=== PATIENT | female | born 1955 | race Asian ===

== ENCOUNTER 2019-05-29 16:06 | Outpatient (CLI) | payer OTHER, SELFPAY ==
--- NOTE | ~2019-05-29 | XR_ITS ---
EXAMINATION: XR chest 2V EXAM DATE: 05/29/2019 16:49 INDICATION: Cough for 6 weeks. TECHNIQUE: Frontal and lateral projections of the chest obtained and reviewed. There is no prior aly dy for comparison. FINDINGS: The lungs are clear. There are no pleural effusions. The cardiomediastinal silhouette is within normal limits. There is no pneumothorax suspected. The bones and soft tissues are unremarkab le. IMPRESSION: Unremarkable chest x-ray exam. Reviewed, dictated and finalized at location A. [employer]
[2019-05-29 16:31] LABS: Basophils Absolute Auto 0.1 K/mm3 (0.0-0.1); Basophils Percent Auto 0.9 % (0.2-1.2); Eosinophils Absolute Auto 0.1 K/mm3 (0-0.3); Eosinophils Percent Auto 1.1 % (0-4.4); Hematocrit 40.6 % (37.0-47.0); Hemoglobin 13.1 g/dL (12.0-15.0); Immature Granulocyte Absolute 0.02 K/mm3 (0.00-0.031); Immature Granulocyte Percent A 0.4 % (0-0.5); Lymphocytes Absolute Auto 1.97 K/mm3 (0.9-3.2); Lymphocytes Percent Auto 34.9 % (18.3-44.2); Mean Corpuscular HGB Conc 32.3 g/dl (32-36); Mean Corpuscular Hemoglobin 29.8 pg (26-34); Mean Corpuscular Volume 92.5 fl (80-100); Mean Platelet Volume 10.3 fl (7.4-10.4); Monocytes Absolute Auto 0.4 K/mm3 (0.1-0.6); Monocytes Percent Auto 6.4 % (2.6-8.5); Neutrophils Absolute Auto 3.2 K/mm3 (1.3-6.7); Neutrophils Percent Auto 56.3 % (45.5-73.1); Platelet Count Result 303 k/mm3 (150-375); Red Blood Count 4.39 M/mm3 (4.2-5.4); Red Cell Distribution Width 11.9 % (11.5-14.5); White Blood Count 5.7 K/mm3 (4.5-10.0)
[2019-05-29 16:43] LABS: Alanine Aminotransferase 31 U/L (4-35); Albumin Level 4.4 g/dL (3.5-5.1); Alkaline Phosphatase 79 U/L (38-126); Aspartate Amino Transferase 27 U/L (14-36); Bilirubin,Total 0.1 mg/dL (0.2-1.3); Blood Urea Nitrogen 18 mg/dL (7-17); Calcium 9.3 mg/dL (8.4-10.2); Carbon Dioxide 31 mmol/L (22-30); Chloride 97 mmol/L (98-107); Estimated Glomerular Filt Rate > 60; Glucose 95 mg/dL (65-105); Sodium 140 mmol/L (137-145)
[2019-05-31 20:30] LABS: EBV Nuclear Ab Antibody >600.00 U/mL (<18.00); EBV Nuclear Ab Interpretation Past; EBV Virus Capsid Ag IgM Ab <36.00 U/mL (<36.00)
== END 2019-05-29 16:07 | disposition home or self-care (01) ==
PROVIDERS: PCP Family Medicine; Visit Provider Physician Assistant
DX: B34.9 Viral infection, unspecified (principal); R05 Cough; R53.83 Other fatigue
CPT/HCPCS: 36415; 71046; 80053; 85025; 86664; 86665

== ENCOUNTER 2019-10-09 00:03 | Outpatient (CLI) | payer OTHER, SELFPAY ==
[2019-10-09 18:54] LABS: SARS-CoV-2 RNA PCR Negative
== END 2019-10-09 00:04 | disposition home or self-care (01) ==
LOC: ANHCOVIDDT 00:04
PROVIDERS: PCP Family Medicine; Visit Provider Internal Medicine Gastroenterology
DX: Z01.818 Encounter for other preprocedural examination (principal); Z11.59 Encounter for screening for other viral diseases
CPT/HCPCS: 87635; C9803; U0003

== ENCOUNTER 2019-10-11 01:19 | Day surgery (SDC) | payer OTHER, SELFPAY ==
[2019-10-05 08:15] VITALS: BMI 22.6
[2019-10-11 10:16] VITALS: BP 149/93; PULSE 88; RESP 16; TEMP 36.6; O2SAT 100
[2019-10-11] MEDS: LACTATED RINGERS 1,000 ML 150 ML IV CONT (10:19)
--- NOTE | 2019-10-11 10:49 | PM.IMHP ---
H&P: HPI History of Present Illness Chief complaint: Colon CA screening Narrative: Reason for visit colonoscopy. This very pleasant lady seen in consultation at the request of Dr. Albarran. Impression: Screening colonoscopy. Previous colonoscopy revealed a poor preparation.She does have a family history of colon cancer. IBS. GERD controlled with dietary restrictions. Per past medical history. Recommendation: Colonoscopy. History: This very pleasant lady's here for colonoscopy. Previous colonoscopy revealed poor preparation. She is here for colonoscopy for screening purposes. She does have a history of alternating constipation and diarrhea compatible with IBS. She has a history of GERD well controlled with dietary modification. Physical examination: General: very pleasant patient in no acute distress. HEENT: Head was normocephalic sclerae is clear mouth without masses neck was supple. Heart: Rate rhythm regular without S3 or S4. Lungs: CTA. Abdomen: Soft with no guarding or rigidity. Bowel sounds were active. Neurologic: Cranial nerves 2 through 12 intact. No focal defects. No clonus. Musculoskeletal system: Revealed no joint tenderness or swelling no muscle atrophy. Extremities: Reveal no significant edema. Skin: Warm and dry with normal turgor. Mental status: intact. Patient is alert and oriented. Review of Systems Review of Systems: All systems reviewed & are unremarkable except as noted in HPI and below PMFSH Past Medical History Medical History Gastroesophageal reflux disease Mitral valve prolapse Prediabetes Family History Family History Grandparent Diabetes mellitus Carcinoma of colon Father Hypertension Family history of cardiovascular disease Family history of coronary artery disease Family history of atrial fibrillation Mother Hypertension Cerebrovascular accident Family history of Alzheimer's disease Family history of malignant neoplasm of bone Family history of dementia Family history of malignant neoplasm of breast in first degree relative Sibling Family history of malignant neoplasm Other Family history of allergic disorder Family history of lymphoma Social History Social History Smoking status: Never smoker Alcohol intake: current Meds Home Medications and Allergies Home Medications Medication Instructions Recorded Confirmed Type imipramine HCl 50 mg tablet 50 mg PO DAILY tablet 03/16/19 10/11/19 History riboflavin (vitamin B2) 100 mg 200 mg PO DAILY tablet 03/16/19 10/11/19 History tablet estradiol 1 gm VAGINAL WEEKLY 08/02/19 10/05/19 History imipramine HCl 10 mg tablet 20 mg PO DAILY 90 Days #180 tablet 08/29/19 10/11/19 Rx acidophilus-pectin, citrus 1 cap PO DAILY 10/05/19 10/05/19 History [Acidophilus Probiotic] magnesium 400 mg PO DAILY 10/05/19 10/05/19 History Allergies Allergy/AdvReac Type Severity Reaction Status Date / Time lactose Allergy Unknown Nausea Verified 10/11/19 10:13 naproxen Allergy Unknown Nausea Verified 10/11/19 10:13 ondansetron Allergy Unknown vivid Verified 10/11/19 10:13 nightmares prochlorperazine Allergy Unknown feels Verified 10/11/19 10:13 restless butorphanol AdvReac Intermediate vivd dreams Verified 10/11/19 10:13 Vital Signs Vital Signs - 24 hr 10/11/19 10:16 Temperature 36.6 C Pulse Rate 88 Respiratory Rate 16 Blood Pressure 149/93 H Pulse Oximetry 100
[2019-10-11 11:33] VITALS: BP 99/66; PULSE 60; RESP 22; O2SAT 99
[2019-10-11 11:43] VITALS: BP 108/74; PULSE 62; RESP 17; O2SAT 100
[2019-10-11 11:53] VITALS: BP 122/81; PULSE 63; RESP 17; O2SAT 100
== END 2019-10-11 12:25 | disposition home or self-care (01) ==
PROVIDERS: PCP Family Medicine; Visit Provider Internal Medicine Gastroenterology
PROC: 0DJD8ZZ Inspection of Lower Intestinal Tract, Via Natural or Artificial Opening Endoscopic (ICD-10-PCS; CPT 45378; principal; 2019-10-11 11:30)
DX: Z12.11 Encounter for screening for malignant neoplasm of colon (principal); K64.8 Other hemorrhoids; Z80.0 Family history of malignant neoplasm of digestive organs; K58.9 Irritable bowel syndrome, unspecified; K21.9 Gastro-esophageal reflux disease without esophagitis; I34.1 Nonrheumatic mitral (valve) prolapse; R73.03 Prediabetes
CPT/HCPCS: 45378; C9803; J2704; J7120; U0003

== ENCOUNTER → 2020-10-04 10:03 | Outpatient (CLI) | payer OTHER, SELFPAY ==
--- NOTE | ~2020-10-04 | MM_ITS ---
EXAMINATION: MM screening price BI w chasity HISTORY: Screening mammogram TECHNIQUE: Craniocaudal and mediolateral oblique 3-D tomosynthesis images were obtained and synthetic 2-D images were generated. CAD analysis was submitted and interpreted. COMPARISON: 04/21/2018, 12/24/2014, 11/27/2013 bilateral digital screening mammogram examinations BREAST PARENCHYMAL COMPOSITION: There are scattered areas of fibroglandular density. FINDINGS: There is no evidence of suspicious mass, calcification, or architectural distortion to sugg est malignancy in either breast. There has been no suspicious interval change. IMPRESSION: 1. No mammographic evidence of malignancy. 2. Recommend routine screening mammography in one year. BI-RADS Category 1: Negative Reviewed, dictated and finalized at location A.
--- NOTE | ~2020-10-04 | DEXA_ITS ---
Bone Density Report Name: Shaneka Victoria Age: 65 Sex: Female Ethnicity: White Date of : 1955 Indication: postmenopausal; screening for osteoporosis; Referring Provider: REY TELLEZ Study: Bone densitometry was performed. Exam Date: October 04, 2020 Accession number: [id number] Bone Density: Region BMD T-score Z-score Classification AP Spine (L1-L4) 0.955 -0.8 0.8 Normal World Health Organization criteria for BMD impression classify patients as: Normal (T-score at or above -1.0), Osteopenia (T-score between -1.0 and -2.5), or Osteoporosis (T-score at or below -2.5). Previous Exams: Region Exam Age BMD T-score BMD Change BMD Change Date g/cm2 vs Baseline vs Previous AP Spine(L1-L4) 10/04/2020 65 0.955 -0.8 -0.037* -0.037* 04/21/2018 63 0.993 -0.5 *Denotes significance at 95% confidence level, LSC for AP Spine = 0.022 g/cm2 Clinical Information Provided by Patient: Has used the following medications: Calcium, vit D included in calcium Patient maximum height was 63.5 Menopause Age: 54 Does not regularly consume dairy products Drinks caffeinated beverages Onset of menses at age 13 Number of children 1 Missed period for more than 6 months in a row Impression: The patient has normal bone mass. The BMD for the AP Spine(L1-L4) decreased, changing by -0.037 since the last DXA exam. Discussion: BONE DENSITY IS ABOVE THE MINIMUM DESIRABLE LEVEL AT ALL SKELETAL SITES TESTED. This patient?s bone mineral density is above the minimum desirable level (T-score -1.0 or better) at all sites measured. The patient should follow a healthful lifestyle (good nutrition with adequate calcium and vitamin D, and appropriate weight-bearing exercise). Follow-Up: Consider repeating this study in 3 to 4 years to reassess this patient's status, or sooner if there is some new clinical indication. Reported by: CRISTI on 10/04/2020 10:25:00 AM. Reviewed, dictated and finalized at location A. [facility]
== END ==
PROVIDERS: PCP Family Medicine; Visit Provider Family Medicine
DX: Z12.31 Encounter for screening mammogram for malignant neoplasm of breast (principal); M81.0 Age-related osteoporosis without current pathological fracture
CPT/HCPCS: 77063; 77067; 77080

== ENCOUNTER 2021-10-26 09:38 | Emergency (ER) | payer OTHER, SELFPAY ==
--- NOTE | 2021-10-26 09:39 | ED.URI ---
HPI - URI/Sore Throat General Chief Complaint: Upper Respiratory Infection Stated Complaint: SORE THROAT/DIFF SWALLOWING Time Seen by Provider: 10/26/21 09:39 Source: patient Mode of arrival: ambulatory Limitations: no limitations History of Present Illness HPI Narrative: Ms. Victoria is a 66-year-old female patient presenting to the clinic today with complaints of sore throat 2-3 days. She reports she is having pain with swallowing. She denies any fever or chills. Was positive for covid a couple weeks ago. Related Data Home Medications Medication Instructions Recorded Confirmed riboflavin (vitamin B2) 100 mg 200 mg PO DAILY 03/16/19 10/26/21 tablet acidophilus 100 million 1 cap PO DAILY 10/05/19 10/26/21 cell-pectin, citrus 10 mg capsule (Acidophilus Probiotic) magnesium 200 mg tablet 400 mg PO DAILY 10/05/19 10/26/21 linaclotide 290 mcg capsule 290 mcg PO ONCE PRN 05/02/21 05/02/21 (Linzess) polyethylene glycol 3350 17 17 g PO DAILY 05/02/21 gram/dose oral powder (Miralax) vitamin B complex 1 tablet PO DAILY 05/02/21 10/26/21 Allergies Allergy/AdvReac Type Severity Reaction Status Date / Time lactose Allergy Unknown Nausea Verified 10/26/21 09:47 naproxen Allergy Unknown Nausea Verified 10/26/21 09:47 ondansetron Allergy Unknown vivid Verified 10/26/21 09:47 nightmares prochlorperazine Allergy Unknown feels Verified 10/26/21 09:47 restless butorphanol AdvReac Intermediate vivd dreams Verified 10/26/21 09:47 Review of Systems Review of Systems: Pertinent positives per HPI. Patient denies any fever, chills, rash, headache, visual changes, dizziness, cough, runny nose, shortness of breath, chest pain, palpitations, nausea, vomiting, diarrhea, constipation, abdominal pain, or any urinary issues. [facility] Past Medical History Medical History (Updated 10/26/21 @ 10:05 by Lyndon Vanessa APRN) Gastroesophageal reflux disease Mitral valve prolapse Prediabetes Family History Family History Grandparent Diabetes mellitus Carcinoma of colon Father Hypertension Family history of cardiovascular disease Family history of coronary artery disease Family history of atrial fibrillation Mother Hypertension Cerebrovascular accident Family history of Alzheimer's disease Family history of malignant neoplasm of bone Family history of dementia Family history of malignant neoplasm of breast in first degree relative Sibling Family history of malignant neoplasm Other Family history of allergic disorder Family history of lymphoma Social History Social History Alcohol intake: current Comments At the time of my signature, I reviewed and agree with the nursing past medical, surgical, social, and family history. There is no relevant family history pertinent to the patient complaint. Exam Narrative: General: Well-developed, well nourished, in no apparent distress Head: Normocephalic, atraumatic Eyes: Pupils equally round and reactive to light bilaterally, EOM intact, sclera and conjunctive clear, no discharge, lids normal Ears: TMs intact and clear, ear canals clear, no drainage, grossly hearing normal. Nose: Nares patent, no discharge, no inflammation, no sinus tenderness. Mouth: Oropharynx without lesions or masses, good dentition, MMM. Oropharynx red and swollen Neck: Supple, trachea midline, no enlargement of anterior or posterior cervical nodes, no thyroid masses or goiter palpable. Cardio: Regular rate and rhythm, s1 and s2 normal, no murmur appreciated. Resp: Clear to auscultation bilaterally anteriorly and posteriorly, no rhonchi, rales, wheezing or rubs Course Course Emergency Course: Portions of this record may have been created with voice recognition software. Level of Care: Express Care Visit Vital Signs Vital
[2021-10-26 09:49] VITALS: BP 116/85; PULSE 69; RESP 16; TEMP 36.6; O2SAT 100
== END 2021-10-26 10:10 | disposition home or self-care (01) ==
PROVIDERS: Emergency Provider Nurse Practitioner Family; PCP Family Medicine
DX: J02.9 Acute pharyngitis, unspecified (principal); K21.9 Gastro-esophageal reflux disease without esophagitis; I34.1 Nonrheumatic mitral (valve) prolapse; R73.03 Prediabetes
CPT/HCPCS: 87081; 87880; 99213; G0463

== ENCOUNTER 2022-05-18 08:04 | Outpatient (CLI) | payer MEDICARE, SELFPAY ==
[2022-05-18 21:15] LABS: Alanine Aminotransferase 76 U/L (6-35); Albumin Level 3.9 g/dL (3.5-5.1); Alkaline Phosphatase 99 U/L (38-126); Anion Gap 2 mmol/L (8-16); Aspartate Amino Transferase 83 U/L (14-36); Bilirubin,Total 0.3 mg/dL (0.2-1.3); Blood Urea Nitrogen 19 mg/dL (7-17); Calcium 8.7 mg/dL (8.4-10.2); Carbon Dioxide 29 mmol/L (22-30); Chloride 104 mmol/L (98-107); Cholesterol 165 mg/dL (0-200); Estimated Glomerular Filt Rate > 60; Glucose 77 mg/dL (65-110); HDL Direct 55 mg/dL; Sodium 135 mmol/L (137-145); Triglycerides 113 mg/dL (<150)
[2022-05-18 21:21] LABS: Basophils Absolute Auto 0.1 K/mm3 (0.0-0.1); Basophils Percent Auto 1.5 % (0.2-1.2); Eosinophils Absolute Auto 0.2 K/mm3 (0-0.3); Eosinophils Percent Auto 4.7 % (0-4.4); Hematocrit 41.5 % (37.0-47.0); Hemoglobin 13.2 g/dL (12.0-15.0); Immature Granulocyte Absolute 0.01 K/mm3 (0.00-0.031); Immature Granulocyte Percent A 0.2 % (0-0.5); Lymphocytes Absolute Auto 2.19 K/mm3 (0.9-3.2); Lymphocytes Percent Auto 47.2 % (18.3-44.2); Mean Corpuscular HGB Conc 31.8 g/dl (32-36); Mean Corpuscular Hemoglobin 30.8 pg (26-34); Mean Platelet Volume 12.2 fl (7.4-10.4); Monocytes Absolute Auto 0.4 K/mm3 (0.1-0.6); Monocytes Percent Auto 8.4 % (2.6-8.5); Neutrophils Absolute Auto 1.8 K/mm3 (1.3-6.7); Platelet Count Result 260 k/mm3 (150-375); Red Blood Count 4.28 M/mm3 (4.2-5.4); Red Cell Distribution Width 12.6 % (11.5-14.5); White Blood Count 4.6 K/mm3 (4.5-10.0)
[2022-05-18 21:31] LABS: LDL Cholesterol Direct 74 mg/dL
[2022-05-18 21:37] LABS: Hepatitis C Virus Antibody Negative (Negative)
[2022-05-19 11:48] LABS: Hemoglobin A1C 5.1 % (<5.7)
== END 2022-05-18 08:05 | disposition home or self-care (01) ==
LOC: ANHGOSHLAB 08:06
PROVIDERS: PCP Family Medicine; Visit Provider Physician Assistant
DX: Z00.00 Encounter for general adult medical examination without abnormal findings (principal); Z79.60 Long term (current) use of unspecified immunomodulators and immunosuppressants; R00.1 Bradycardia, unspecified; Z11.59 Encounter for screening for other viral diseases
CPT/HCPCS: 36415; 80053; 80061; 83036; 84443; 85025; 86803

== ENCOUNTER 2022-06-26 14:07 | Outpatient (CLI) | payer MEDICARE, SELFPAY ==
[2022-06-26 19:53] LABS: Alanine Aminotransferase 61 U/L (6-35); Albumin Level 4.4 g/dL (3.5-5.1); Alkaline Phosphatase 88 U/L (38-126); Anion Gap 5 mmol/L (8-16); Aspartate Amino Transferase 60 U/L (14-36); Bilirubin,Total 0.5 mg/dL (0.2-1.3); Blood Urea Nitrogen 17 mg/dL (7-17); Calcium 9.2 mg/dL (8.4-10.2); Carbon Dioxide 28 mmol/L (22-30); Chloride 104 mmol/L (98-107); Estimated Glomerular Filt Rate > 60; Glucose 95 mg/dL (65-110); Potassium 3.8 mmol/L (3.4-5.0); Sodium 137 mmol/L (137-145)
== END 2022-06-26 14:08 | disposition home or self-care (01) ==
LOC: ANHGOSHLAB 14:09
PROVIDERS: PCP Family Medicine; Visit Provider Physician Assistant
DX: R74.8 Abnormal levels of other serum enzymes (principal)
CPT/HCPCS: 36415; 80053

== ENCOUNTER → 2022-07-06 09:48 | Outpatient (CLI) | payer MEDICARE, SELFPAY ==
--- NOTE | ~2022-07-06 | US_ITS ---
US abdomen complete DATE: 07/06/2022 10:12 INDICATION: Abnormal elevation of serum liver enzymes TECHNIQUE: Real-time and color flow imaging and Doppler analysis COMPARISON: None FINDINGS: Abdominal aorta is of normal caliber. Inferior vena cava is unremarkable. No hepatic space-occupying mass lesion. Normal hepatopedal portal venous flow direction. The common bile duct measures 3 mm, normal. Approximately 5 mm gallbladder polyp. No gallstones or gallbladder wall thickening or pericholecystic fluid collection. Negative sonographic Martins's sign. No renal mass lesion or hydronephrosis. Normal splenic size. IMPRESSION: 5 mm gallbladder polyp Reviewed, dictated and finalized at Location A. Reviewed, dictated and finalized at location B. IMPRESSION: 5 mm gallbladder polyp
== END ==
PROVIDERS: PCP Family Medicine; Visit Provider Physician Assistant
DX: R74.8 Abnormal levels of other serum enzymes (principal); K82.4 Cholesterolosis of gallbladder
CPT/HCPCS: 76700

== ENCOUNTER → 2022-07-10 13:47 | Outpatient (CLI) | payer MEDICARE, SELFPAY ==
--- NOTE | ~2022-07-10 | MM_ITS ---
EXAMINATION: MM screening price BI w chasity HISTORY: Screening TECHNIQUE: Craniocaudal and mediolateral oblique 3-D tomosynthesis images were obtained and synthetic 2-D images were generated. CAD analysis was submitted and interpreted. COMPARISON: Comparison to multiple prior studies sequentially, with oldest reviewed study dated 11/27. BREAST PARENCHYMAL COMPOSITION: Breast composed of scattered areas of fibroglandular density FINDINGS: There is no evidence of suspicious mass, calcification, or architectural distortion to sugg est malignancy in either breast. There has been no suspicious interval change. IMPRESSION: 1. No mammographic evidence of malignancy. 2. Recommend routine screening mammography in one year. BI-RADS Category 1: Negative Reviewed, dictated and finalized at location A.
== END ==
PROVIDERS: PCP Family Medicine; Visit Provider Physician Assistant
DX: Z12.31 Encounter for screening mammogram for malignant neoplasm of breast (principal)
CPT/HCPCS: 77063; 77067

== ENCOUNTER 2022-08-05 00:25 | Day surgery (SDC) | payer MEDICARE, SELFPAY ==
[2022-07-27 14:16] VITALS: BMI 22.3
--- NOTE | 2022-08-04 13:49 | WPDANESEPPF ---
Anes - Initial Pre Proc Eval Procedure: Operation Date: 08/05/22 10:45 Proposed Procedures p Esophagogastroduodenoscopy - Marcos Burt MD Date/Time: 08/04/22 13:49 Surgeon: Marcos Burt MD Pre Op Diagnosis: GERD Patient Data Age: 67 Gender: F Height: 1.6 m Weight: 57.2 kg Allergies Allergy/AdvReac Type Severity Reaction Status Date / Time butorphanol AdvReac Intermediate vivd dreams Verified 07/28/22 12:07 lactose AdvReac Unknown Nausea Verified 08/05/22 09:30 naproxen AdvReac Unknown Nausea Verified 08/05/22 09:30 ondansetron AdvReac Unknown vivid Verified 08/05/22 09:30 nightmares prochlorperazine AdvReac Unknown feels Verified 08/05/22 09:30 restless Home Medications Medication Instructions Recorded Confirmed Type riboflavin (vitamin B2) 100 mg 200 mg PO DAILY 03/16/19 08/05/22 History tablet acidophilus 100 million 1 cap PO DAILY 10/05/19 08/05/22 History cell-pectin, citrus 10 mg capsule (Acidophilus Probiotic) magnesium 200 mg tablet 400 mg PO DAILY 10/05/19 08/05/22 History polyethylene glycol 3350 17 17 g PO DAILY 05/02/21 08/05/22 History gram/dose oral powder (Miralax) vitamin B complex 1 tablet PO DAILY 05/02/21 08/05/22 History estradiol 0.01% (0.1 mg/gram) See Rx Instructions .Route 05/08/22 08/05/22 Rx vaginal cream .COMPLEX #42.5 grams cholecalciferol (vitamin D3) 25 25 mcg PO DAILY 07/28/22 08/05/22 History mcg (1,000 unit) tablet (Vitamin D3) Patient hx anesthesia problems: none Family hx anesthesia problems: none Results Review: All pre-operative results and documents have been reviewed as part of the pre-operative evaluation. [facility] Past Medical History Medical History (Updated 08/04/22 @ 13:50 by Rick Webber DO) Bradycardia Gastroesophageal reflux disease Mitral valve prolapse Prediabetes Syncopal episodes Family History Family History Grandparent Diabetes mellitus Carcinoma of colon Father Hypertension Family history of cardiovascular disease Family history of coronary artery disease Family history of atrial fibrillation Mother Hypertension Cerebrovascular accident Family history of Alzheimer's disease Family history of malignant neoplasm of bone Family history of dementia Family history of malignant neoplasm of breast in first degree relative Sibling Family history of malignant neoplasm Other Family history of allergic disorder Family history of lymphoma Social History Social History (Updated 05/08/22 @ 10:31 by Grayson Ambrose MA) Smoking status: Never smoker Alcohol intake: current Substance use: never Substance use type: does not use Lack of Transportation: No Lack of Food: Never True Current Housing: I Have Housing Concerned About Future Housing: No Difficulty Paying Gas/Electric Bills: No Difficulty Paying for Meds: No Currently Unemployed: No Education: Bachelor's Degree Difficulty w/ Childcare or Family Care: No Living arrangements: with family Spiritual care concerns: No Anes - Eval Final PreProcedure Day of Procedure 08/04/22 13:49 Patient weight: normal Heart: regular rate and rhythm Lungs: clear to auscultation and normal air movement Airway: Mallampati scale class II Neurological: alert and oriented Last oral intake: >/= 8 hours ASA classification: II Emergent: no Anesthetic plan: proceed Anesthesia type and monitoring: general GIVS and standard monitoring Results Review: All pre-operative results and documents have been reviewed as part of the pre-operative evaluation. Informed Consent: The patient's anesthetic plan and its attendant risks and benefits were discussed with the patient/family/POA. Questions were solicited and answers provided to the satisfaction of the patient/family/POA.
[2022-08-05 09:32] VITALS: BP 123/79; PULSE 56; RESP 18; TEMP 36.1; O2SAT 100; BMI 22.0
[2022-08-05] MEDS: LACTATED RINGERS 1,000 ML 150 ML IV CONT (09:41)
--- NOTE | 2022-08-05 09:56 | PM.HPGS ---
History of Present Illness History of Present Illness Consent: Risks, benefits, and alternatives have been discussed and questions answered. Patient agrees to proceed with procedure. Chief complaint: GERD Narrative: Shaneka Victoria is a 67 year old female with intermittent gerd for over 2 years, medications did not make a difference but now is mild, never had egd. no dysphagia. Review of Systems Constitutional: Constitutional: Denies headache(s) and Denies weakness Eyes: Eyes: Denies blurry vision ENT: Reports Normal hearing present, Denies headache(s) and Denies neck pain Cardiovascular: Cardiovascular: Denies chest pain and Denies dyspnea Respiratory: Respiratory: Denies dyspnea Gastrointestinal: Gastrointestinal: Reports no additional gastrointestinal complaints Genitourinary: Genitourinary: Denies dysuria Musculoskeletal: Musculoskeletal: Denies neck pain Integumentary/Breasts: Skin/Breast: Denies dry skin Neurologic: Reports Normal hearing present, Denies headache(s) and Denies weakness Psychiatric: Psychiatric: Denies anxiety Endocrine: Endocrine: Denies change in body appearance Hematologic/Lymphatic: Hematologic/Lymphatic: Denies easy bleeding Allergic/Immunologic: Allergic/Immunologic: Denies urticaria PMFSH Past Medical History Medical History (Updated 08/04/22 @ 13:50 by Rick Webber DO) Bradycardia Gastroesophageal reflux disease Mitral valve prolapse Prediabetes Syncopal episodes Family History Family History Grandparent Diabetes mellitus Carcinoma of colon Father Hypertension Family history of cardiovascular disease Family history of coronary artery disease Family history of atrial fibrillation Mother Hypertension Cerebrovascular accident Family history of Alzheimer's disease Family history of malignant neoplasm of bone Family history of dementia Family history of malignant neoplasm of breast in first degree relative Sibling Family history of malignant neoplasm Other Family history of allergic disorder Family history of lymphoma Social History Social History (Updated 05/08/22 @ 10:31 by Grayson Ambrose MA) Smoking status: Never smoker Alcohol intake: current Substance use: never Substance use type: does not use Lack of Transportation: No Lack of Food: Never True Current Housing: I Have Housing Concerned About Future Housing: No Difficulty Paying Gas/Electric Bills: No Difficulty Paying for Meds: No Currently Unemployed: No Education: Bachelor's Degree Difficulty w/ Childcare or Family Care: No Living arrangements: with family Spiritual care concerns: No Meds Home Medications and Allergies Home Medications Medication Instructions Recorded Confirmed Type riboflavin (vitamin B2) 100 mg 200 mg PO DAILY 03/16/19 08/05/22 History tablet acidophilus 100 million 1 cap PO DAILY 10/05/19 08/05/22 History cell-pectin, citrus 10 mg capsule (Acidophilus Probiotic) magnesium 200 mg tablet 400 mg PO DAILY 10/05/19 08/05/22 History polyethylene glycol 3350 17 17 g PO DAILY 05/02/21 08/05/22 History gram/dose oral powder (Miralax) vitamin B complex 1 tablet PO DAILY 05/02/21 08/05/22 History estradiol 0.01% (0.1 mg/gram) See Rx Instructions .Route 05/08/22 08/05/22 Rx vaginal cream .COMPLEX #42.5 grams cholecalciferol (vitamin D3) 25 25 mcg PO DAILY 07/28/22 08/05/22 History mcg (1,000 unit) tablet (Vitamin D3) Allergies Allergy/AdvReac Type Severity Reaction Status Date / Time butorphanol AdvReac Intermediate vivd dreams Verified 07/28/22 12:07 lactose AdvReac Unknown Nausea Verified 08/05/22 09:30 naproxen AdvReac Unknown Nausea Verified 08/05/22 09:30 ondansetron AdvReac Unknown vivid Verified 08/05/22 09:30 nightmares prochlorperazine AdvReac Unknown feels Verified 08/05/22 09:30 restless Vital
[2022-08-05 10:06] VITALS: BP 87/54; PULSE 52; RESP 18; O2SAT 99
[2022-08-05 10:16] VITALS: BP 88/59; PULSE 46; RESP 18; O2SAT 99
[2022-08-05 10:26] VITALS: BP 103/66; PULSE 48; RESP 18; O2SAT 100
== END 2022-08-05 10:50 | disposition home or self-care (01) ==
PROVIDERS: PCP Family Medicine; Visit Provider Internal Medicine Gastroenterology
PROC: 0DJ08ZZ Inspection of Upper Intestinal Tract, Via Natural or Artificial Opening Endoscopic (ICD-10-PCS; CPT 43235; principal; 2022-08-05 10:45)
DX: K21.9 Gastro-esophageal reflux disease without esophagitis (principal); K29.70 Gastritis, unspecified, without bleeding; K31.7 Polyp of stomach and duodenum
CPT/HCPCS: 43239; 43251; 88305; J2704; J7120

== ENCOUNTER 2022-08-18 10:19 | Outpatient (CLI) | payer MEDICARE, SELFPAY ==
[2022-08-18 14:17] LABS: Alanine Aminotransferase 47 U/L (6-35); Albumin Level 3.9 g/dL (3.5-5.1); Alkaline Phosphatase 90 U/L (38-126); Anion Gap 1 mmol/L (8-16); Aspartate Amino Transferase 56 U/L (14-36); Bilirubin,Total 0.4 mg/dL (0.2-1.3); Blood Urea Nitrogen 13 mg/dL (7-17); Calcium 8.6 mg/dL (8.4-10.2); Carbon Dioxide 34 mmol/L (22-30); Chloride 104 mmol/L (98-107); Estimated Glomerular Filt Rate > 60; Glucose 83 mg/dL (65-110); Potassium 3.8 mmol/L (3.4-5.0); Sodium 139 mmol/L (137-145)
[2022-08-19 12:31] LABS: Hepatitis B Surface Antigen Negative (Negative)
[2022-08-19 12:37] LABS: HAV RESULT Negative (Negative); Hepatitis B Core IgM Result Negative (Negative)
[2022-08-19 12:48] LABS: Hepatitis C Virus Antibody Negative (Negative)
== END 2022-08-18 10:20 | disposition home or self-care (01) ==
LOC: ANHGOSHLAB 10:20
PROVIDERS: PCP Family Medicine; Visit Provider Physician Assistant
DX: R74.8 Abnormal levels of other serum enzymes (principal); Z11.59 Encounter for screening for other viral diseases
CPT/HCPCS: 36415; 80053; 80074

== ENCOUNTER 2022-08-28 13:50 | Outpatient (CLI) | payer MEDICARE, SELFPAY ==
[2022-09-03 09:32] LABS: ANA Cascade Screen Negative (Negative)
== END 2022-08-28 13:51 | disposition home or self-care (01) ==
LOC: ANHGOSHLAB 13:52
PROVIDERS: PCP Family Medicine; Visit Provider Physician Assistant
DX: R74.8 Abnormal levels of other serum enzymes (principal)
CPT/HCPCS: 36415; 82728; 86038

== ENCOUNTER → 2022-09-04 16:18 | Outpatient (CLI) | payer MEDICARE, SELFPAY ==
--- NOTE | ~2022-09-04 | XR_ITS ---
EXAMINATION: XR finger 1st RT min 2V DATE: 09/04/2022 16:36 INDICATION: Right thumb pain and swelling. Unspecified osteoarthritis. TECHNIQUE: 3 views of right thumb were obtained. COMPARISON: Right hand radiographs 02/16/2013 FINDINGS: Bone alignment is normal. No fracture. There is mild osteoarthritis of first carpometacarpa l joint and first interphalangeal joint. There is a periarticular calcification at first interphalang eal joint. IMPRESSION: 1. Mild polyarticular osteoarthritis. Reviewed, dictated and finalized at location E.
--- NOTE | ~2022-09-04 | XR_ITS ---
EXAMINATION: XR finger 5th LT min 2V DATE: 09/04/2022 16:36 INDICATION: Left hand fifth digit pain and swelling. Unspecified osteoarthritis. TECHNIQUE: 4 views of left hand fifth digit were obtained. COMPARISON: Left hand radiographs 02/16/2013 FINDINGS: Bone alignment is normal. No fracture. There is moderate osteoarthritis of proximal interph alangeal joint and mild osteoarthritis of distal interphalangeal joint. There are punctate periarticu lar calcifications at proximal interphalangeal joint. IMPRESSION: 1. Polyarticular osteoarthritis. Reviewed, dictated and finalized at location E.
== END ==
PROVIDERS: PCP Family Medicine; Visit Provider Nurse Practitioner Family
DX: M19.042 Primary osteoarthritis, left hand (principal); M19.041 Primary osteoarthritis, right hand
CPT/HCPCS: 73140

== ENCOUNTER 2022-10-28 10:45 | Outpatient (CLI) | payer MEDICARE, SELFPAY | END 2022-10-28 10:46 | disposition home or self-care (01) | LOC: ANHLAB 10:47 | PROVIDERS: PCP Family Medicine; Visit Provider Internal Medicine Cardiovascular Disease | DX: R00.1 Bradycardia, unspecified (principal) | CPT/HCPCS: 36415; 84443 ==

== ENCOUNTER 2023-01-15 07:35 | Outpatient (CLI) | payer MEDICARE, SELFPAY ==
--- NOTE | ~2023-01-15 | US_ITS ---
US abdomen limited DATE: 01/15/2023 08:39 INDICATION: Cholesterolosis of the gallbladder TECHNIQUE: Real-time imaging of liver, pancreas, gallbladder COMPARISON: 07/06/2022 abdominal ultrasound examination FINDINGS: Again noted is an approximately 5 mm gallbladder polyp. No gallbladder wall thickening or g allstones or abnormal pericholecystic fluid collection. Negative sonographic Martins's sign. The common bile duct measures 4 mm, normal. No hepatic space-occupying mass lesion. Normal hepatopedal portal venous flow direction. No pancreatic mass lesion or ductal dilatation. IMPRESSION: 5 mm gallbladder polyp Reviewed, dictated and finalized at Location A. Reviewed, dictated and finalized at location B. IMPRESSION: 5 mm gallbladder polyp
== END 2023-01-15 07:36 | disposition home or self-care (01) ==
PROVIDERS: PCP Family Medicine; Visit Provider Physician Assistant
DX: K82.4 Cholesterolosis of gallbladder (principal); R74.8 Abnormal levels of other serum enzymes
CPT/HCPCS: 76705

== ENCOUNTER 2023-02-23 08:25 | Outpatient (CLI) | payer MEDICARE, SELFPAY ==
[2023-02-23 18:31] LABS: Alanine Aminotransferase 36 U/L (6-35); Albumin Level 3.9 g/dL (3.5-5.1); Alkaline Phosphatase 115 U/L (38-126); Aspartate Amino Transferase 143 U/L (14-36); Bilirubin,Total 0.4 mg/dL (0.2-1.3)
== END 2023-02-23 08:26 | disposition home or self-care (01) ==
LOC: ANHGOSHLAB 08:26
PROVIDERS: PCP Family Medicine; Visit Provider Family Medicine
DX: R74.01 Elevation of levels of liver transaminase levels (principal)
CPT/HCPCS: 36415; 80076

== ENCOUNTER 2023-08-11 13:22 | Outpatient (CLI) | payer MEDICARE, SELFPAY ==
--- NOTE | ~2023-08-11 | MM_ITS ---
EXAMINATION: MM screening price BI w chasity HISTORY: Screening TECHNIQUE: Craniocaudal and mediolateral oblique 3-D tomosynthesis images were obtained and synthetic 2-D images were generated. CAD analysis was submitted and interpreted. COMPARISON: Comparison to multiple prior studies sequentially, with oldest reviewed study dated 11/27. BREAST PARENCHYMAL COMPOSITION: Not dense: There are scattered areas of fibroglandular density. FINDINGS: There is no evidence of suspicious mass, calcification, or architectural distortion to sugg est malignancy in either breast. There has been no suspicious interval change. IMPRESSION: 1. No mammographic evidence of malignancy. 2. Recommend routine screening mammography in one year. BI-RADS Category 1: Negative Reviewed, dictated and finalized at location B.
== END 2023-08-11 13:23 ==
LOC: MICIMG 13:23
PROVIDERS: PCP Family Medicine; Visit Provider Family Medicine
DX: Z12.31 Encounter for screening mammogram for malignant neoplasm of breast (principal)
CPT/HCPCS: 77063; 77067

== ENCOUNTER 2023-09-30 16:37 | Emergency (ER) | payer MEDICARE, SELFPAY ==
[2023-09-30] VITALS (7 sets, daily range): BP systolic 126–145; BP diastolic 72–85; PULSE 42–56; RESP 12–17; TEMP 36.3; O2SAT 100
--- NOTE | ~2023-09-30 | XR_ITS ---
EXAMINATION: XR chest 2V DATE: 09/30/2023 19:33 INDICATION: Weakness TECHNIQUE: PA and lateral views of the chest were obtained. COMPARISON: Chest radiograph dated 05/29/2019 FINDINGS: The lungs remain clear with no focal airspace opacities, pulmonary edema, pleural effusion or pneumot horax. Arch size is normal. Tortuous lower thoracic aorta. Mild S-shaped thoracic scoliosis exaggerat ed by slight rightward rotation of the patient IMPRESSION: 1. No acute cardiopulmonary disease. Reviewed, dictated and finalized at location A.
--- NOTE | 2023-09-30 19:23 | ECG_ITS ---
Test Date: 2023-09-30 20:29:17 Measurements Intervals [place] Rate: 45 P: 61 PA: 159 QRS: 57 QRSD: 89 T: 24 QT: 412 QTc: 358 Interpretive Statements SINUS BRADYCARDIA POSSIBLE LEFT ATRIAL ENLARGEMENT [-0.1mV P-WAVE IN V1/V2] ABNORMAL ECG No previous ECG available for comparison Electronically Signed On 10-01-2023 10:53:03 CDT by Nicolás Romano M.D.
[2023-09-30 20:02] LABS: Basophils Absolute Auto 0.1 K/mm3 (0.0-0.1); Basophils Percent Auto 1.3 % (0.2-1.2); Eosinophils Absolute Auto 0.2 K/mm3 (0-0.3); Eosinophils Percent Auto 3.9 % (0-4.4); Hematocrit 40.1 % (37.0-47.0); Hemoglobin 13.3 g/dL (12.0-15.0); Immature Granulocyte Absolute 0.01 K/mm3 (0.00-0.031); Immature Granulocyte Percent A 0.2 % (0-0.5); Lymphocytes Absolute Auto 2.41 K/mm3 (0.9-3.2); Lymphocytes Percent Auto 39.1 % (18.3-44.2); Mean Corpuscular HGB Conc 33.2 g/dl (32-36); Mean Corpuscular Hemoglobin 31.3 pg (26-34); Mean Corpuscular Volume 94.4 fl (80-100); Mean Platelet Volume 11.3 fl (7.4-10.4); Monocytes Absolute Auto 0.5 K/mm3 (0.1-0.6); Monocytes Percent Auto 7.8 % (2.6-8.5); Neutrophils Percent Auto 47.7 % (45.5-73.1); Platelet Count Result 249 k/mm3 (150-375); Red Blood Count 4.25 M/mm3 (4.2-5.4); Red Cell Distribution Width 12.3 % (11.5-14.5); White Blood Count 6.2 K/mm3 (4.5-10.0)
[2023-09-30 20:10] LABS: Alanine Aminotransferase 32 U/L (6-35); Albumin Level 4.5 g/dL (3.5-5.1); Alkaline Phosphatase 79 U/L (38-126); Anion Gap 6 mmol/L (4-12); Aspartate Amino Transferase 39 U/L (14-36); Bilirubin,Total 0.5 mg/dL (0.2-1.3); Blood Urea Nitrogen 16 mg/dL (7-17); Calcium 9.1 mg/dL (8.4-10.2); Carbon Dioxide 28 mmol/L (22-30); Chloride 101 mmol/L (98-107); Estimated CRCL calculation 56 ml/min; Estimated Glomerular Filt Rate > 60; Glucose 89 mg/dL (65-110); Potassium 3.7 mmol/L (3.4-5.0); Sodium 135 mmol/L (137-145)
[2023-09-30 20:19] LABS: Appearance Urine Clear (Clear); Bacteria Urine None Seen /hpf; Bilirubin Urine Negative (Negative); Blood Urine Negative (Negative); Color Urine Yellow (Yellow); Glucose Urine UA Negative (Negative); Ketones Urine Negative (Negative); Leukocyte Esterase Ur 1+ LEU/UL (Negative); Need Manual Microscopic Reviewed; Nitrate Urine Negative (Negative); Non Pathogenic Casts 0-2; Protein Urine Negative (Negative); RBC Urine 0-2 /hpf (0-2); Squamous Epithelial Cell Urine None Seen /hpf (Few); Urobilinogen Urine 0.2 mg/dL (<2.0); WBC Urine 0-5 /hpf (0-3); pH Urine 7.5 (5.0-9.0)
[2023-09-30 20:20] LABS: Add Urine Microscopic? YES; Specific Grav Ur 1.004 (1.001-1.035)
--- NOTE | 2023-09-30 20:39 | PC.NURSE ---
pt ambulatory with steady gait to intake desk and verbalized that she has heartburn but does not normally have heartburn. Pt had an EKG and lab work completed @ 2031 (8min prior). EDP notified, troponins added onto labs.
[2023-09-30 21:02] LABS: Troponin I < 0.012 ng/mL (0.000-0.034)
[2023-09-30 21:40] LABS: Creatine Kinase 223 U/L (30-135); Magnesium 2.2 mg/dL (1.6-2.3)
--- NOTE | 2023-09-30 22:01 | ECG_ITS ---
Test Date: 2023-09-30 22:16:44 Measurements Intervals [place] Rate: 45 P: 59 [place]: 163 QRS: 54 QRSD: 85 T: 23 QT: 422 QTc: 368 Interpretive Statements SINUS BRADYCARDIA POSSIBLE LEFT ATRIAL ENLARGEMENT [-0.1mV P WAVE IN V1/V2] BORDERLINE ECG Compared to ECG 09/30/2023 20:29:17 No significant changes Electronically Signed On 10-01-2023 10:54:14 CDT by Nicolás Romano M.D.
[2023-09-30 22:15] LABS: Influenza A QL RT-PCR Negative (Negative); Influenza B QL RT-PCR Negative (Negative); RSV RNA, RT-PCR Negative (Negative); SARS-CoV-2 RNA PCR Negative (Negative)
[2023-09-30] MEDS: SODIUM CHLORIDE 0.9% IV 1,000 ML 999 ML IV CONT ×2 (22:22)
[2023-09-30] MEDS: diphenhydrAMINE HCl INJ 50 MG/ML VIAL 25 MG IV PUSH (22:22)
[2023-09-30] MEDS: METOCLOPRAMIDE HCL INJ 10 MG/2 ML VIAL IV PUSH (22:23)
[2023-09-30 22:44] LABS: Troponin I < 0.012 ng/mL (0.000-0.034)
[2023-09-30] MEDS: MORPHINE SULFATE (*CRX) 4 MG/ML INJ 2 MG IV PUSH (22:59)
--- NOTE | 2023-09-30 23:42 | ED.GENADULT ---
HPI - General Adult General Chief complaint: Weakness Stated complaint: pt was out in the heat and doesn't fell well Time Seen by Provider: 09/30/23 21:02 History of Present Illness HPI narrative: patient is 68-year-old female who presents emergency department with chief complaint of not feeling right. Patient reports she was outside working in the garden today then swim and then after this evening started having cramping in her legs and generalized malaise. Patient reports she has a headache reports she has does not feel well. Patient denies fever reports he has had some nausea with this denies diarrhea denies abdominal pain or chest pain Related Data Home Medications Medication Instructions Recorded Confirmed riboflavin (vitamin B2) 100 mg 200 mg PO DAILY 03/16/19 05/19/23 tablet acidophilus 100 million 1 cap PO DAILY 10/05/19 05/19/23 cell-pectin, citrus 10 mg capsule (Acidophilus Probiotic) magnesium 200 mg tablet 400 mg PO DAILY 10/05/19 05/19/23 polyethylene glycol 3350 17 17 g PO DAILY 05/02/21 05/19/23 gram/dose oral powder (Miralax) vitamin B complex 1 tablet PO DAILY 05/02/21 05/19/23 cholecalciferol (vitamin D3) 25 25 mcg PO DAILY 07/28/22 05/19/23 mcg (1,000 unit) tablet (Vitamin D3) Allergies Allergy/AdvReac Type Severity Reaction Status Date / Time butorphanol AdvReac Intermediate vivd dreams Verified 09/30/23 16:38 lactose AdvReac Unknown Nausea Verified 09/30/23 16:38 ondansetron AdvReac Unknown vivid Verified 09/30/23 16:38 nightmares prochlorperazine AdvReac Unknown feels Verified 09/30/23 16:38 restless Review of Systems Review of Systems: A 10 system review of systems was completed on the patient and is negative except for what is stated in the HPI. Nursing and ancillary documentation was reviewed. [facility] Past Medical History Medical History Gastric polyp Gastroesophageal reflux disease Mitral valve prolapse Prediabetes Syncopal episodes Trigger thumb, right thumb Surgical History Surgical History History of appendectomy History of left hip replacement 2019- Dr Andino History of total right hip replacement 2018- Dr Andino Family History Family History Grandparent Diabetes mellitus Carcinoma of colon Father Hypertension Family history of cardiovascular disease Family history of coronary artery disease Family history of atrial fibrillation Mother Hypertension Cerebrovascular accident Family history of Alzheimer's disease Family history of malignant neoplasm of bone Family history of dementia Family history of malignant neoplasm of breast in first degree relative Sibling Family history of malignant neoplasm Other Family history of allergic disorder Family history of lymphoma Social History Social History Smoking status: Never smoker Alcohol intake: never Substance use: never Substance use type: does not use Lack of Transportation: No Lack of Food: Never True Current Housing: I Have Housing Concerned About Future Housing: No Difficulty Paying Gas/Electric Bills: No Difficulty Paying for Meds: No Currently Unemployed: No Education: Bachelor's Degree Difficulty w/ Childcare or Family Care: No Living arrangements: with family Occupation/Education: occupation Additional occupation/education comments: [employer] Spiritual care concerns: No Exam Narrative: GENERAL: Well-appearing, well-nourished, and in no acute distress. HEAD: Normocephalic, atraumatic. EYES: PERRLA and EOMI. ENT: Nares clear, no rhinorrhea or epistaxis. Mucous membranes moist. NECK: Supple. CHEST: Clear to auscultation. No respiratory di
[2023-09-30] MEDS: KETOROLAC 30 MG/ML VIAL (*BKC) IV PUSH (23:55)
[2023-10-01 00:06] VITALS: PULSE 47; RESP 11; O2SAT 99
[2023-10-01 00:15] VITALS: BP 128/74; PULSE 82; RESP 15; O2SAT 100
== END 2023-10-01 00:16 | disposition home or self-care (01) ==
PROVIDERS: Emergency Provider Emergency Medicine; PCP Family Medicine
DX: R53.1 Weakness (principal); R51.9 Headache, unspecified; Z20.822 Contact with and (suspected) exposure to COVID-19
CPT/HCPCS: 36415; 71046; 80053; 81001; 82550; 83735; 84484; 85025; 87637; 93005; 96361; 96374; 96375; 99284; J1200; J1885; J2270; J2765; J7030

== ENCOUNTER 2023-11-23 11:16 | Outpatient (CLI) | payer MEDICARE, SELFPAY ==
--- NOTE | ~2023-11-23 | US_ITS ---
EXAMINATION: US pelvic complete w TV INDICATION: Abdominal distention Comparison:03/18/2004 TECHNIQUE: Multiple transabdominal and endovaginal sonographic images of the pelvis performed. FINDINGS: The uterus measures 6.9 x 3 x 3.4 cm. Uterus is retroverted. The endometrial complex measur es 1 cm. Endometrium is thickened and heterogeneous. The right ovary measures 2 x 1.8 x 1.0 cm and the left ovary measures 2.2 x 2.1 x 1 cm. There are sm all follicles in each ovary. Normal doppler signal in both ovaries. There is no free fluid in the pelvis. There are no abnormal masses seen on either side. IMPRESSION: 1. Thickened endomtrial complex. The differential diagnosis includes endometrial hyperplasia, polyp a nd carcinoma. Biopsy is recommended. Reviewed, dictated and finalized at location B. IMPRESSION: 1. Thickened endomtrial complex. The differential diagnosis includes endometria l hyperplasia, polyp and carcinoma. Biopsy is recommended.
== END 2023-11-23 11:17 ==
LOC: MICIMG 11:17
PROVIDERS: PCP Family Medicine; Visit Provider Nurse Practitioner Family
DX: R93.89 Abnormal findings on diagnostic imaging of other specified body structures (principal); R14.0 Abdominal distension (gaseous)
CPT/HCPCS: 76830; 76856

== ENCOUNTER 2024-01-12 00:41 | Day surgery (SDC) | payer MEDICARE, SELFPAY ==
--- NOTE | 2024-01-10 14:46 | PC.NURSE ---
Report to the Outpatient Waiting Room, entrance under the green pavilion located off [facility], at time _10 AM on date _01/12/24 . Planned Procedure Time: _1200 NOON .? Time changes happen often and if your time is changed the preop area will call you the afternoon before. - You and your visitor will be asked to self-screen and do not enter if you have any COVID symptoms. Please call surgeon if you need to reschedule. - A mask is optional within the hospital at this time. Patients may have clear liquids (water, carbonated beverages, clear teas, apple juice) until 3 hours prior to surgery (9 AM)with a maximum of 20 ounces. - No food from midnight until time of surgery and no smoking - Infants may have breast milk until 4 hours before surgery, formula 6 hours prior to surgery. - Children will be allowed to drink immediately following surgery.? If applicable, please bring a bottle or sippy cup to assist with drinking. Juice, water, soda, and popsicles are readily available.? For infants on formula, please bring formula the day of surgery.? Pacifiers are allowed. Take only the following medications with a SIP of water on the morning of surgery: __NONE DO NOT STOP ANY OF YOUR OTHER PRESCRIPTION MEDICATIONS PRIOR TO SURGERY EXCEPT THE FOLLOWING Medications to discontinue per physician __PT STATES LAST DOSE VITAMINS AND SUPPLEMENTS 01/10/24 Please no make-up, nail somali, hairspray, perfume, deodorant, or body powder the day of surgery.? No jewelry (including any body piercings) or valuables the day of surgery, leave them at home.? Please take a shower or bath the night before, or the morning of, surgery with an antibacterial soap.? Wear comfortable, loose fitting clothing.? Children are encouraged to wear pajamas. - Jewelry must be removed prior to entering the operating room.? Rings and piercings that are not removed may be cut off. - The hospital will not accept responsibility for valuables.? - Please leave all valuables, including medications, at home the day of surgery. If you are going home after surgery, a licensed trencher driver must drive you home.? - NO public transportation without another adult if you receive anesthesia. - We recommend that an adult stay with you for 24 hours following discharge. - We also recommend that you do not drive, make important decision, drink alcoholic beverages, or take any drugs that were not prescribed by your health care provider for at least 24 hours after your discharge time. For Pediatric surgeries, we recommend two adults accompany the child home. Follow any additional instructions given to you from your surgeon. Telephone instructions given to ____PATIENT and asked if any additional questions and then verbalized understanding. Patient advised to call surgeon office or pre surgery nurse liaison [phone] if any additional questions.
[2024-01-10 14:52] VITALS: BMI 21.8
[2024-01-12 10:13] VITALS: BMI 21.5
[2024-01-12] MEDS: LACTATED RINGERS 1,000 ML 30 ML IV CONT (10:34)
[2024-01-12] MEDS: ACETAMINOPHEN 500 MG TABLET 1000 MG PO (10:56)
--- NOTE | 2024-01-12 11:59 | WPDANESEPPF ---
Anes - Initial Pre Proc Eval Procedure: Operation Date: 01/12/24 12:00 Proposed Procedures p Hysteroscopy Dilation and Curettage - Larry Maciel MD Date/Time: 01/12/24 11:59 Surgeon: Larry Maciel MD Pre Op Diagnosis: abnormal ultrasound, thickened endometrium Patient Data Age: 68 Gender: F Height: 1.61 m Weight: 56.1 kg Allergies Allergy/AdvReac Type Severity Reaction Status Date / Time butorphanol AdvReac Intermediate vivd dreams Verified 01/12/24 10:11 lactose AdvReac Unknown Nausea Verified 01/12/24 10:11 prochlorperazine AdvReac Unknown feels Verified 01/12/24 10:11 restless Home Medications Medication Instructions Recorded Confirmed Type riboflavin (vitamin B2) 100 mg 200 mg PO DAILY 03/16/19 01/10/24 History tablet acidophilus 100 million 1 cap PO DAILY 10/05/19 01/10/24 History cell-pectin, citrus 10 mg capsule (Acidophilus Probiotic) polyethylene glycol 3350 17 17 g PO DAILY 05/02/21 01/10/24 History gram/dose oral powder (Miralax) vitamin B complex 1 tablet PO DAILY 05/02/21 01/10/24 History cholecalciferol (vitamin D3) 25 25 mcg PO DAILY 07/28/22 01/10/24 History mcg (1,000 unit) tablet (Vitamin D3) estradiol 0.01% (0.1 mg/gram) See Rx Instructions .Route 09/04/22 01/10/24 Rx vaginal cream .COMPLEX #42.5 grams calcium-magnesium 750 mg-465 mg 1 tablet PO DAILY 01/10/24 01/10/24 History tablet imipramine HCl 25 mg tablet 25 mg PO QPM 01/10/24 01/10/24 History Patient hx anesthesia problems: post op nausea/vomiting Family hx anesthesia problems: none Results Review: All pre-operative results and documents have been reviewed as part of the pre-operative evaluation. [facility] Past Medical History Medical History Gastric polyp Gastroesophageal reflux disease Mitral valve prolapse Prediabetes Syncopal episodes Trigger thumb, right thumb Surgical History Surgical History History of appendectomy History of left hip replacement 2019- Dr Andino History of total right hip replacement 2018- Dr Andino Family History Family History Grandparent Diabetes mellitus Carcinoma of colon Father Hypertension Family history of cardiovascular disease Family history of coronary artery disease Family history of atrial fibrillation Mother Hypertension Cerebrovascular accident Family history of Alzheimer's disease Family history of malignant neoplasm of bone Family history of dementia Family history of malignant neoplasm of breast in first degree relative Sibling Family history of malignant neoplasm Other Family history of allergic disorder Family history of lymphoma Social History Social History Smoking status: Never smoker Alcohol intake: never Substance use: never Substance use type: does not use Lack of Transportation: No Lack of Food: Never True Current Housing: I Have Housing Concerned About Future Housing: No Difficulty Paying Gas/Electric Bills: No Difficulty Paying for Meds: No Currently Unemployed: No Education: Bachelor's Degree Difficulty w/ Childcare or Family Care: No Living arrangements: with family Occupation/Education: occupation Additional occupation/education comments: [employer] Spiritual care concerns: No Comments pt had an ECHO 2023 - denies having MVP anymore, hx. of syncope - states its been over a year since her last episode. Anes - Eval Final PreProcedure Day of Procedure 01/12/24 11:59 Patient weight: normal Heart: regular rate and rhythm and bradycardia Lungs: clear to auscultation Airway: Mallampati scale class II Neurological: alert and oriented Last oral intake: >/= 8 hours ASA classification: II An
--- NOTE | 2024-01-12 12:04 | PM.IMHP ---
H&P: HPI History of Present Illness Date/Time: 01/12/24 12:04 Chief Complaint: Abnormal pelvic ultrasound Narrative: 68 y/o who had some abdominal discomfort. A pelvic ultrasound shows a 1cm thick endometrial complex. She has had no vaginal bleeding. Review of Systems Review of Systems: All systems reviewed & are unremarkable except as noted in HPI and below PMFSH Past Medical History Medical History Gastric polyp Gastroesophageal reflux disease Mitral valve prolapse Prediabetes Syncopal episodes Trigger thumb, right thumb Surgical History Surgical History History of appendectomy History of left hip replacement 2019- Dr Andino History of total right hip replacement 2017- Dr Andino Family History Family History Grandparent Diabetes mellitus Carcinoma of colon Father Hypertension Family history of cardiovascular disease Family history of coronary artery disease Family history of atrial fibrillation Mother Hypertension Cerebrovascular accident Family history of Alzheimer's disease Family history of malignant neoplasm of bone Family history of dementia Family history of malignant neoplasm of breast in first degree relative Sibling Family history of malignant neoplasm Other Family history of allergic disorder Family history of lymphoma Social History Social History Smoking status: Never smoker Alcohol intake: never Substance use: never Substance use type: does not use Lack of Transportation: No Lack of Food: Never True Current Housing: I Have Housing Concerned About Future Housing: No Difficulty Paying Gas/Electric Bills: No Difficulty Paying for Meds: No Currently Unemployed: No Education: Bachelor's Degree Difficulty w/ Childcare or Family Care: No Living arrangements: with family Occupation/Education: occupation Additional occupation/education comments: [employer] Spiritual care concerns: No Meds Home Medications and Allergies Home Medications Medication Instructions Recorded Confirmed Type riboflavin (vitamin B2) 100 mg 200 mg PO DAILY 03/16/19 01/10/24 History tablet acidophilus 100 million 1 cap PO DAILY 10/05/19 01/10/24 History cell-pectin, citrus 10 mg capsule (Acidophilus Probiotic) polyethylene glycol 3350 17 17 g PO DAILY 05/02/21 01/10/24 History gram/dose oral powder (Miralax) vitamin B complex 1 tablet PO DAILY 05/02/21 01/10/24 History cholecalciferol (vitamin D3) 25 25 mcg PO DAILY 07/28/22 01/10/24 History mcg (1,000 unit) tablet (Vitamin D3) estradiol 0.01% (0.1 mg/gram) See Rx Instructions .Route 09/04/22 01/10/24 Rx vaginal cream .COMPLEX #42.5 grams calcium-magnesium 750 mg-465 mg 1 tablet PO DAILY 01/10/24 01/10/24 History tablet imipramine HCl 25 mg tablet 25 mg PO QPM 01/10/24 01/10/24 History Allergies Allergy/AdvReac Type Severity Reaction Status Date / Time butorphanol AdvReac Intermediate vivd dreams Verified 01/12/24 10:11 lactose AdvReac Unknown Nausea Verified 01/12/24 10:11 prochlorperazine AdvReac Unknown feels Verified 01/12/24 10:11 restless Exam Const: Orientation/consciousness: patient oriented x3 Other: Well-developed, well-nourished female in no acute distress. Neck: Thyroid: thyroid normal Lymphatic: no lymphadenopathy noted (in neck, axilla or inguinal nodes) Resp: Effort & Inspection: normal respiratory effort Auscultation: clear to auscultation bilaterally Cardio: Rate: regular rate Rhythm: regular rhythm Heart sounds: S1 normal heart sound present and S2 normal heart sound present GI: Other: ABD: Soft, nontender, nondistended. No guarding or rebound tenderness. No hepatospl
--- NOTE | 2024-01-12 12:06 | WPDHPUPDATE1 ---
History and Physical Update Update Date/Time: 01/12/24 12:06 History and Physical has been reviewed, including an updated exam of the patient. There are NO changes in the patient's condition. Risks, benefits, and alternatives have been discussed and questions answered. Patient agrees to proceed with procedure.
[2024-01-12] MEDS: LIDOCAINE HCL 1% LOCAL INJ 20 ML VIAL 10 ML INFILTRATE (12:34)
--- NOTE | 2024-01-12 12:50 | W.PM.PROC2 ---
Procedure Note - Detailed Date of Procedure 01/12/24 Pre-op Diagnosis Abnormal pelvic ultrasound Post-op Diagnosis Other (Endometrial polyp) Procedure Performed Hysteroscopy Dilation and sharp curettage Endometrial polypectomy Surgeon Larry Maciel MD Anesthesia MAC and Local (1% lidocaine) Findings Endometrial polyp. Both tubal ostia seen. Endometrial tissue otherwise atrophic. Description of Procedure The patient was taken to the operating room where she was prepared and draped in the usual sterile fashion in the dorsal lithotomy position. The bladder was drained with a red rubber catheter. A sterile speculum was placed into the vagina. The anterior lip of the cervix was grasped with single-tooth tenaculum. Ten mL of 1% lidocaine was administered in a paracervical block. The cervix was then gently dilated using Hegar dilators until a 7 mm dilator could be passed. Hysteroscopy was performed using sterile saline as a distention medium. Findings are as noted above. The Aveta resector blade was advanced and the polyp was easily removed in its entirety. Sharp curettage was then performed, and endometrial curettings were collected on a Telfa pad and passed off to be sent to pathology. Hemostasis was excellent. Sponge, lap, needle and instrument counts were correct. The patient was awakened and taken to the recovery room in stable condition. I was present and scrubbed through the entire procedure. Implants None Estimated Blood Loss 5 Drains No Packing No Pathology Yes (Endometrial curettings and polyp) Complications None Condition Stable Disposition PACU
[2024-01-12 12:51] VITALS: BP 112/72; PULSE 60; RESP 12; O2SAT 98
[2024-01-12 13:20] VITALS: BP 131/85; PULSE 60
[2024-01-12] MEDS: KETOROLAC 15 MG/ML VIAL (*BKC) IV PUSH (13:29)
[2024-01-12 13:50] VITALS: BP 116/74; PULSE 61
== END 2024-01-12 13:58 | disposition home or self-care (01) ==
PROVIDERS: PCP Family Medicine; Visit Provider Obstetrics & Gynecology
PROC: 0U5B8ZZ Destruction of Endometrium, Via Natural or Artificial Opening Endoscopic (ICD-10-PCS; CPT 58563; principal; 2024-01-12 12:00)
DX: N84.0 Polyp of corpus uteri (principal)
CPT/HCPCS: 58558; 88305; A9270; J1100; J1885; J2003; J2250; J2405; J2704; J3010; J7120

== ENCOUNTER 2024-06-21 09:20 | Outpatient (CLI) | payer MEDICARE, SELFPAY ==
[2024-06-21 13:25] LABS: Basophils Absolute Auto 0.1 K/mm3 (0.0-0.1); Eosinophils Absolute Auto 0.2 K/mm3 (0-0.3); Eosinophils Percent Auto 5.6 % (0-4.4); Hematocrit 41.1 % (37.0-47.0); Hemoglobin 13.2 g/dL (12.0-15.0); Immature Granulocyte Absolute 0.01 K/mm3 (0.00-0.031); Immature Granulocyte Percent A 0.3 % (0-0.5); Lymphocytes Absolute Auto 1.72 K/mm3 (0.9-3.2); Lymphocytes Percent Auto 43.8 % (18.3-44.2); Mean Corpuscular HGB Conc 32.1 g/dl (32-36); Mean Corpuscular Hemoglobin 31.1 pg (26-34); Mean Corpuscular Volume 96.9 fl (80-100); Mean Platelet Volume 11.7 fl (7.4-10.4); Monocytes Absolute Auto 0.4 K/mm3 (0.1-0.6); Monocytes Percent Auto 9.4 % (2.6-8.5); Neutrophils Absolute Auto 1.5 K/mm3 (1.3-6.7); Neutrophils Percent Auto 38.9 % (45.5-73.1); Platelet Count Result 295 k/mm3 (150-375); Red Blood Count 4.24 M/mm3 (4.2-5.4); Red Cell Distribution Width 12.3 % (11.5-14.5); White Blood Count 3.9 K/mm3 (4.5-10.0)
[2024-06-21 13:40] LABS: Alanine Aminotransferase 30 U/L (6-35); Albumin Level 4.3 g/dL (3.5-5.1); Alkaline Phosphatase 108 U/L (38-126); Anion Gap 7 mmol/L (4-12); Aspartate Amino Transferase 75 U/L (14-36); Bilirubin,Total 0.2 mg/dL (0.2-1.3); Blood Urea Nitrogen 19 mg/dL (7-17); Calcium 9.2 mg/dL (8.4-10.2); Carbon Dioxide 29 mmol/L (22-30); Chloride 104 mmol/L (98-107); Cholesterol 179 mg/dL (0-200); Estimated Glomerular Filt Rate > 60; Glucose 82 mg/dL (65-110); HDL Direct 65 mg/dL; Potassium 4.3 mmol/L (3.4-5.0); Sodium 140 mmol/L (137-145); Triglycerides 136 mg/dL (<150)
[2024-06-21 13:51] LABS: LDL Cholesterol Direct 83 mg/dL
[2024-06-21 17:15] LABS: Hemoglobin A1C 5.3 % (<5.7)
== END 2024-06-21 09:21 | disposition home or self-care (01) ==
PROVIDERS: PCP Family Medicine; Visit Provider Nurse Practitioner Family
DX: R73.01 Impaired fasting glucose (principal); E78.5 Hyperlipidemia, unspecified; K21.9 Gastro-esophageal reflux disease without esophagitis; R74.8 Abnormal levels of other serum enzymes; G43.109 Migraine with aura, not intractable, without status migrainosus; F32.A Depression, unspecified; Z79.60 Long term (current) use of unspecified immunomodulators and immunosuppressants
CPT/HCPCS: 36415; 80053; 80061; 83036; 84443; 85025

== ENCOUNTER 2024-08-14 10:53 | Outpatient (CLI) | payer MEDICARE, SELFPAY ==
--- NOTE | ~2024-08-14 | MM_ITS ---
EXAMINATION: MM screening price BI w chasity HISTORY: Screening TECHNIQUE: Craniocaudal and mediolateral oblique 3-D tomosynthesis images were obtained and synthetic 2-D images were generated. CAD analysis was submitted and interpreted. COMPARISON: Comparison to multiple prior studies sequentially, with oldest reviewed study dated 12/24. BREAST PARENCHYMAL COMPOSITION: Not dense: There are scattered areas of fibroglandular density. FINDINGS: There is no evidence of suspicious mass, calcification, or architectural distortion to sugg est malignancy in either breast. There has been no suspicious interval change. IMPRESSION: 1. No mammographic evidence of malignancy. 2. Recommend routine screening mammography in one year. BI-RADS Category 1: Negative Reviewed, dictated and finalized at location A.
== END 2024-08-14 10:54 | disposition home or self-care (01) ==
LOC: MICIMG 10:54
PROVIDERS: PCP Family Medicine; Visit Provider Nurse Practitioner Family
DX: Z12.31 Encounter for screening mammogram for malignant neoplasm of breast (principal)
CPT/HCPCS: 77063; 77067

== ENCOUNTER 2024-08-31 00:51 | Day surgery (SDC) | payer MEDICARE, SELFPAY ==
[2024-08-22 10:11] VITALS: BMI 22.6
--- OUTSIDE RECORDS SUMMARY | 2024-08-31 00:55 | XMS_ITS | Clinical Summary ---
Author Organization [facility] Address [address] [id number] Phone Care Team Providers Care Channel Director Name Role Phone Josh Albarran MD Primary Care Provider [phone] Social History Tobacco Use Types Packs/Day Years Used Date Smoking Tobacco: Never Assessed Comments Unknown Sex and Gender Information Value Date Recorded Sex Assigned at Not on file Legal Sex Female 10:00 AM CDT Gender Identity Not on file Sexual Orientation Not on file Plan of Treatment Health Maintenance Due Date Last Done Comments DEXA Bone Density 1955 Hepatitis C Virus (HCV) Screening 1955 TdaP Immunization 1955 Cologuard 2007 Immunochemical Fecal Occult Blood 2007 Mammogram 2007 Pneumococcal Immunization (5 0+ years) (1 of 1 - PCV) 2007 Zoster Immunization (2 of 2) 06/13/2019 04/18/2019 Influenza Immunization (#1) 2023 SARS-COV-2 Immunization ( season) 2023 01/17/2021, 04/22/2020, 04/01/2020 Colonoscopy 10/10/2024 10/11/2019, 01/26/2019 Colorectal Cancer Screening 10/10/2024 Respiratory Syncytial Virus (RSV) Immunization (Adult) (1 - 1-dose 75+ series) 02/08/2032 10/11/2019, 01/26/2019 Hepatitis B Immunization Aged Out No longer eligible based on patient's age to complete this topic Meningococcal Immunization (ACWY) Aged Out No longer eligible b ased on patient's age to complete this topic Rotavirus Immunization Aged Out No lo nger eligible based on patient's age to complete this topic Procedures Procedure Name Priority Date/Time Associated Diagnosis Comments HM COLONOSCOPY Routine 10/11/2019 from Last 3 Months or Most Recently Relevant to Health Maintenance Results * HM COLONOSCOPY (10/11/2019) Richy Cope DO PROCEDURE/MINOR SURGICAL ORDERA BLES Final Result from Last 3 Months or Most Recently Relevant to Health Maintenance Care Teams Channel Director Relationship Specialty Start Date End Date Josh Albarran MD [address] [place] [id number] PCP - General Family Medicine 09/24/16
--- OUTSIDE RECORDS SUMMARY | 2024-08-31 00:55 | XMS_ITS | Clinical Summary ---
Author Organization [facility] Address [address] [place] [address] Care Team Providers Care Visual Artist Name Role Phone Josh Albarran MD Primary Care Provider [phone] Allergies Active Allergy Reactions Criticality Noted Date Comments Lactose Stomach upset Low 04/12/1996 Nsaids (Non-Steroidal Anti-Inflammatory Drug) Nausea & Vomiting Low 01/14/2018 reflux Prochlorperazine Other (See comments) Low agitation Butorphanol Other (See comments) Low 04/19/2018 nightmares Ondansetron Other (See comments) Medium 01/14/2018 nightmares Medications estradiol (ESTRACE) 0.01 % (0.1 mg/gram) vaginal cream DIRECTED APPLY 04/15 APPLICATOR TWICE A WEEK AND NEEDED 1 8 Active polyethylene glycol (MIRALAX) 17 gram/dose powderIndication s:constipation Take 17 g by mouth every morning IBS Active riboflavin (Vitamin B-2) 100 mg tabletIndication s:Riboflavin Deficiency Take 2 tablets (200 mg total) by mouth 2 (two) times a day Active Lactobacillus acidophilus (Probiotic) 10 billion cell capsule Active vitamin B complex capsule Acti ve Active Problems Problem Noted Date Diagnosed Date Syncope 05/06/2018 Primary osteoarthritis of left hip 03/23/2018 Overview (03/23/2018): Added automatically from request for surgery [id number] Arthralgia of hip 06/08/2017 Aftercare following right hip joint replacement surgery 08/27/2016 Lumbar radiculopathy 02/06/2016 Atypical migraine 2015 Mitral valve prolapse 2015 Irritable bowel syndrome 2015 Surgical History Surgery Date Site/Laterality Comments MD APPENDECTOMY Appendectomy - (Added by TW Conv) FL FLUORO GUIDED INJECTION H IP LEFT 12/21/2017 Left TOTAL HIP ARTHROPLASTY 07/21/2016 Right Medical History Medical History Date Comments Migraines Mitral valve prolapse Osteoarthritis GERD (gastroesophageal reflux disease) Diabetes (HCC) PONV (postoperative nausea and vomiting) Sinus bradycardia 10/28/2022 Family History Medical History Relation Name Comments Headache Brother 1 Headache - (Add ed by TW Conv) Lymphoma Brother 2 Family history of lymphoma - (Added by TW Conv) Atrial fibrillation Father Family h istory of atrial fibrillation - (Added by TW Conv) Depression Father Family history of depression - (Added by TW Conv) Hyperlipidemia Father Family histor y of hypercholesterolemia - (Added by TW Conv) Hypertension Father Family history of hypertension - (Added by TW Conv) Parkinsonism Father Family history of Parkinson's disease - (Added by TW Conv) Dementia Maternal Grandmother Family history of dementia - (Added by TW Conv) Breast cancer Mother Family history of malignant neoplasm of breast - (Added by TW Conv) Dementia Mother Family history of dementia - (Added by TW Conv) Depression Mother Anxiety and dep ression - (Added by TW Conv) Hyperlipidemia Mother Family histor y of hypercholesterolemia - (Added by TW Conv) Hypertension Mother Family history of hypertension - (Added by TW Conv) Stroke Mother Family history of cerebrovascular accident (CVA) - (Added by TW Conv) Anesthesia problems Neg Hx Relation Name Status Comments Brother 1 Brother 2 Father Maternal Grandmother Mother Social History Tobacco Use Types Packs/Day Years Used Date Smoking Tobacco: Former Cigarettes 1 1982 Smokeless Tobacco: Never Comments:smoked socially Alcohol Use Standard Drinks/Week Comments Yes 0 (1 standard drink = 0.6 oz pur e alcohol) rarely Comments No Sex and Gender Information Value Date Recorded Sex Assigned at Not on file Legal Sex Female 1:11 AM DOUGH MIXER Gender Identity Female 07/13/2023 2:13 PM CDT Sexual Orientation Not on file Obstetrics History Last Filed Vital Signs Vital Sign Reading Time Taken Comments Blood Pressure 98/58 02/02/2023 8:25 AM CDT Pulse 58 02/02/2023 8:25 AM CDT Temperature 36.2 C (97.2 F) 05/14/2018 11:00 AM DOUGH MIXER Respiratory Rate 14 05/14/2018 11:00 AM DOUGH MIXER Oxygen Saturation 99% 02/02/2023 8:25 AM CDT Inhaled Oxygen Concentration - - Weight 58.3 kg (128 lb 8 oz) 02/02/2023 8:25 AM CDT Height 160 cm (5' 3 ) 02/02/2023 8:25 AM CDT Body Mass Index 22.76 02/02/2023 8:25 AM CDT Plan of Treatment Health Maintenance Due Date Last Done Comments Breast Cancer Screening-Mammogram 1957 Colon Cancer Screening-Colonoscopy 1957 Depression Screening 1957 Fall Risk Assessment 1957 Hepatitis C Screening 1957 Osteoporosis Screening-Bone Density Scan 1957 Hepatitis B Screening 1975 Zoster Vaccine (2 of 2) 06/13/2019 04/18/2019 Well Visit 65+ 2022 Covid-19 Vaccine (2023-2 5 season) 2023 01/27/2022, 07/16/2021, 01/17/2021, Additional history exists Influenza Vaccine (Season Ended) 2024 01/20/20 DTaP/Tdap/Td Vaccine (2 - Td or Tdap) 12/25/2031 12/24/2021, 06/12/1999 Pneumococcal vaccine 65+ Completed 05/08/2022 Medical Devices Implanted Type Area Trolley Car Overhauler Device Identifier Shelf Expiration Date Model / Serial / Lot [employer] [id number] Whately 52mm Sector Hip Shell Acetabular Gription Sterile Latex Free - [id number] Implanted:Qty: 1 on 05/13/2018 by Marlo Andino MD at [facility] Left: Hip [employer] [id number] 03/11/2028 [id number] / / [id number] [employer] [id number] Whately 52mm 36mm Hip Neutral Liner Acetabular Altrx Sterile Latex Free - [id number] Implanted:Qty: 1 on 05/13/2018 by Marlo Andino MD at [facility] Left: Hip [employer] [id number] 04/11/2023 [id number] / / [id number] [employer] [id number] Whately 6.5mm 40mm Acetabular Cancellous Screw Bone Sterile - [id number] Implanted:Qty: 1 on 05/13/2018 by Marlo Andino MD at [facility] Left: Hip [employer] [id number] 12/11/2027 [id number] / / [id number] Dep[employer] [id number] Actis 105mm Collar Hip 5 Standard Offset Stem Femoral - [id number] Implanted:Qty: 1 on 05/13/2018 by Marlo Andino MD at [facility] Left: Hip [employer] [id number] 04/11/2028 [id number] / / [id number] [employer] [id number] Articul/Angel 36mm Cementless Hip +5mm 12/14 Taper Head Femoral Latex Free - [id number] Implanted:Qty: 1 on 05/13/2018 by Marlo Andino MD at [facility] Left: Hip [employer] [id number] 11/09/2022 [id number] / / [id number] Insurance [facility] HMO T MEDICARE FOR[facility]LY [facility] MEDICARE Advance Directives For more information, please contact: [phone] * Full Code (Latest Code Status on File) Date Activated Date Inactivated Comments 05/13/2018 3:36 PM 05/14/2018 9:39 PM Care Teams Visual Artist Relationship Specialty Start Date End Date Josh Albarran MD PCP - General 05/28/16
--- OUTSIDE RECORDS SUMMARY | 2024-08-31 00:55 | XMS_ITS | Clinical Summary ---
Author Organization [facility] Address [address] [place] [address] Care Team Providers Care Plant Culture Manager Name Role Phone Josh Albarran MD Primary Care Provider [phone] Source Comments [facility],non[facility] Affiliates and Associated Physician Practices is amultiple site organization consisting of ambulatory clinics and hospital sitesin [place], [place], [place] and [place]. This disclosure is being madepursuant to the Care Everywhere program and may not contain all information available regarding this patient. Last updated 17.[facility] Allergies Active Allergy Reactions Criticality Noted Date Comments Lactose GI Discomfort Low 04/12/1996 Prochlorperazine Other Low 05/21/2023 agitation Medications * Be aware that medications may not be up to date on this document. Alwaysverify current medications with the patient. estradiol (Estrace) 0.1 MG/GM vaginal cream INSERT 04/15 APPLICATORFUL TWICE WEEKLY AND NEEDED 3 Active polyethylene glycol 3350 (Miralax) 17 GM/SCOOP powder Take 17 (seventeen) g by mouth every morning Active Riboflavin (VITAMIN B-2 PO) Take 400 mg by mouth once daily Active Probiotic Product (PROBIOTIC-10 PO) Active B Dbezntm-G-Eqkf c Acid (vitamin B complex with C) Take by mouth once daily Active vitamin D, cholecalcifero l, 50 MCG (2000 UT) tablet Take 1 (one) tablet by mouth once daily Active Calcium-Magnes ium-Vitamin D (CALCIUM MAGNESIUM PO) Take by mouth once daily Active Active Problems Problem Noted Date Diagnosed Date Elevated liver enzymes 05/21/2023 Family History Medical History Relation Name Comments Other - Hepatic/Liver Sister Relation Name Status Comments Sister Social History Tobacco Use Types Packs/Day Years Used Date Smoking Tobacco: Never Smokeless Tobacco: Never Alcohol Use Standard Drinks/Week Comments Not Currently 0 (1 standard drink = 0.6 oz pur e alcohol) Comments Unknown Sex and Gender Information Value Date Recorded Sex Assigned at Not on file Legal Sex Female 6:15 AM ATHLETIC AGENT Gender Identity Not on file Sexual Orientation Not on file Last Filed Vital Signs Vital Sign Reading Time Taken Comments Blood Pressure 117/74 05/21/2023 10:04 AM ATHLETIC AGENT Pulse 51 05/21/2023 10:04 AM ATHLETIC AGENT Temperature 36.4 C (97.6 F) 05/21/2023 10:04 AM ATHLETIC AGENT Respiratory Rate 18 05/21/2023 10:04 AM ATHLETIC AGENT Oxygen Saturation 100% 05/21/2023 10:04 AM ATHLETIC AGENT Inhaled Oxygen Concentration - - Weight 58.1 kg (128 lb) 05/21/2023 10:04 AM ATHLETIC AGENT Height 160 cm (5' 3 ) 05/21/2023 10:04 AM ATHLETIC AGENT Body Mass Index 22.67 05/21/2023 10:04 AM ATHLETIC AGENT Plan of Treatment Health Maintenance Due Date Last Done Comments BONE DENSITY TESTING 1957 COLOGUARD (AGES 45-75) - COL ON CA SCREENING 1957 COLON MONITORING 1957 COLONOSCOPY - COLON CA SCREENING 1957 CT COLONOGRAPHY - COLON CA SCREENING 1957 Colorectal Cancer Screening 1957 FIT - COLON CA SCREENING 1957 FLEX SIG - COLON CA SCREENING 1957 LIPID TESTING 1957 MAMMOGRAM 1957 HEPATITIS C SCREENING 02/03/1975 DTAP/TDAP/TD VACCINES (1 - Tdap) 02/08/1976 PNEUMOCOCCAL VACCINE 50+ (1 of 1 - PCV) 2007 ZOSTER VACCINE (1 of 2) 2007 COVID-19 VACCINE ( - 2023-2 5 season) 2023 DEPRESSION SCREENING 04/12/2024 MEDICARE AWV CALENDAR YEAR 2024 INFLUENZA VACCINE (Season Ended) 2024 Respiratory Syncytial Virus (RSV) Vaccine Pt: or over 60 yrs (1 - 1-dose 75+ series) 02/08/2032 HEPATITIS B VACCINE Aged Out No longe r eligible based on patient's age to complete this topic HIB VACCINE Aged Out No longer eligi ble based on patient's age to complete this topic HPV VACCINE Aged Out No longer eligi ble based on patient's age to complete this topic MENINGOCOCCAL (Group B) VACC INE SHARED DECISION-MAKING Aged Out No longer eligibl e based on patient's age to complete this topic MENINGOCOCCAL GROUPS A/C/Y/W VACCINE Aged Out No longer eligible b ased on patient's age to complete this topic Insurance AETNA AETNA MEDICARE ADV SELF PAY NO INSURANCE Member Subscriber Plan / Payer (Ef fective for All Dates) Name:Ghada Victoria Member ID:Not on file Relation to Subscriber:Not on file Name:GHADA VICTORIA Subscriber ID:Not on file (Home) Address: [address] [place] [id number] Payer ID:Not on file Group ID:Not on file Type:Self Pay Address: [place], [place] Care Teams Plant Culture Manager Relationship Specialty Start Date End Date Josh Albarran MD [address] [place] [phone] PCP - General 08/18/22
--- OUTSIDE RECORDS SUMMARY | 2024-08-31 00:55 | XMS_ITS | Continuity of Care Document ---
Author Organization [facility] Address [address] [place] [address] Phone Care Team Providers Care Call Out Operator Name Role Phone [facility] Unavailable Unavail able Procedures Procedure Date Vision Svcs Frames Purchases Vision Svcs Frames Purchases Progressive Lens, Hi Index Frames Deluxe Progressive Lens, Hi Index Lens-Index>1.66Plas;>1.80Glas 9 Anti-reflective Coating Advance Directives Directive Yes / No Effective Date File Name No Information Encounters Encounter Description Practice Location Reason(s) For Visit Diagnoses Date Provider Providers Copied on Encounter [facility], [id number] [place] [address] [address], [place], [place], [id number], [place] [phone] [facility] No Information 0-201 0 Optical [facility] [facility], [address], [id number] , [place]. tel: [phone] [facility], [address] [place] [address] [address], [place], [place], [id number], [place] tel:[phone] [facility] No Information 9-200 9 [facility] [facility], [facility] [address], [place], [id number] , [place]. tel: [phone] Referring Provider: Richy Gresham, [address], [place], [address]. tel:[phone] g Provider: Shona Navarro, [address], [place], [address]. tel:[phone] [facility], [address], [place], [place], [id number], [place] tel:[phone] [facility] No Information Mar-0 9-200 9 [facility] [facility], [address], [place], [place], [id number] , [place]. tel:[phone] Referring Provider: Richy Gresham, [address], [place], [address]. tel:[phone] g Provider: Shona Navarro, [address], [place], [address]. tel:[phone] Family History Family Member Type Diagnosis Age At Onset No Information Payers Payer name Insurance type Covered libertarian ID Authoriza tion(s) No Information Social History Type Description Quantity Date Captured Comments Sex Female Smoking Status No Information Chief Complaint And Reason For Visit No Information Reason For Referral Reason For Referral No Information History Of Present Illness Encounter Date Complaint History Of Prese nt Illness No Information Functional Status Date Functional Assessmen t No Information Instructions Date Instruction Additional Infor mation No Information Assessments Type Assessment Date No Information Patient Care Teams Name Effective Dates (start - stop) Status Members No Information
--- OUTSIDE RECORDS SUMMARY | 2024-08-31 00:55 | XMS_ITS | Clinical Summary ---
Author Organization [facility] Address [address] Capone: Epic Prelude ADT ROBBIE RIOJAS JULIAN [address] Care Team Providers Care Edge Polisher Name Role Phone Unavailable Primary Care Provider Unavailabl e Encounters Date Type Department Care Team Description 06/20/2024 External Device Data [facility] ABSTRACTION Provider, Abstract 06/20/2024 External Device Data [facility] ABSTRACTION Provider, Abstract from Last 3 Months Social History Tobacco Use Types Packs/Day Years Used Date Smoking Tobacco: Never Assessed Comments Unknown Sex and Gender Information Value Date Recorded Sex Assigned at Not on file Legal Sex Female 7:00 PM RN TRAINING Gender Identity Not on file Sexual Orientation Not on file Plan of Treatment Health Maintenance Due Date Last Done Comments DTAP/TDAP/TD VACCINES (1 - Tdap) 02/08/1976 BREAST CANCER SCREENING 1997 COLORECTAL SCREENING 2002 Colorectal Cancer Screening 2002 FIT-DNA Q 3 years 2002 FIT/FOBT Q 1 year 2002 Flex Sig/CT Colonography Q 5 years 2002 PNEUMOCOCCAL VACCINE 50+ YEARS (1 of 1 - PCV) 02/08/20 07 ZOSTER VACCINE (1 of 2) 2007 OSTEOPOROSIS SCREENING 2022 INFLUENZA VACCINE (#1) 2023 RSV VACCINE (60+ or ) (1 - 1-dose 75+ series) 02/08/2032
--- OUTSIDE RECORDS SUMMARY | 2024-08-31 00:55 | XMS_ITS | Referral Summary ---
Author Organization [facility] Address [address] [place] [address] Care Team Providers Care Forestry Technician Name Role Phone Josh Albarran MD Primary Care Provider [phone] Allergies Active Allergy Reactions Criticality Noted Date [...] (03/23/2018): Added automatically from request for surgery [id number] Arthralgia of hip 06/08/2017 Aftercare following right hip joint replacement surgery 08/27/2016 Lumbar radiculopathy 02/06/2016 Atypical migraine 2015 Mitral valve prolapse 2015 Irritable bowel syndrome 2015 Social History Tobacco Use Types Packs/Day Years Used Date Smoking Tobacco: Former Cigarettes 1 1982 Smokeless Tobacco: Never Comments:smoked socially Alcohol Use Standard Drinks/Week Comments Yes 0 (1 standard drink = 0.6 oz pur e alcohol) rarely Comments No Sex and Gender Information Value Date Recorded Sex Assigned at Not on file Legal Sex Female 1:11 AM HAT MEASURER Gender Identity Female 07/13/2023 2:13 PM CDT Sexual Orientation Not on file Last Filed Vital Signs Vital Sign Reading Time Taken Comments Blood Pressure 98/58 02/02/2023 8:25 AM CDT Pulse 58 02/02/2023 8:25 AM CDT Temperature 36.2 C (97.2 F) 05/14/2018 11:00 AM HAT MEASURER Respiratory Rate 14 05/14/2018 11:00 AM HAT MEASURER Oxygen Saturation 99% 02/02/2023 8:25 AM CDT Inhaled Oxygen Concentration - - Weight 58.3 kg (128 lb 8 oz) 02/02/2023 8:25 AM CDT Height 160 cm (5' 3 ) 02/02/2023 8:25 AM CDT Body Mass Index 22.76 02/02/2023 8:25 AM CDT Plan of Treatment Not on file Medical Devices Implanted Type Area Marketing Sales Supervisor Device Identifier Shelf Expiration Date Model / Serial / Lot [employer] [id number] [place] 52mm Sector Hip Shell Acetabular Gription Sterile Latex Free - [id number] Implanted:Qty: 1 on 05/13/2018 by Marlo Andino MD at [facility] Left: Hip [employer] [id number] 03/11/2028 [id number] / / [id number] [employer] [id number] [place] 52mm 36mm Hip Neutral Liner Acetabular Altrx Sterile Latex Free - [id number] Implanted:Qty: 1 on 05/13/2018 by Marlo Andino MD at [facility] Left: Hip [employer] [id number] 04/11/2023 [id number] / / [id number] [employer] [id number] [place] 6.5mm 40mm Acetabular Cancellous Screw Bone Sterile - [id number] Implanted:Qty: 1 on 05/13/2018 by Marlo Andino MD at [facility] Left: Hip [employer] [id number] 12/11/2027 [id number] / / [id number] [employer] 101050 Actis 105mm Collar Hip 5 Standard Offset Stem Femoral - [id number] Implanted:Qty: 1 on 05/13/2018 by Marlo Andino MD at [facility] Left: Hip [employer] [id number] 04/11/2028050 / / [id number] [employer] [id number] Articul/Angel 36mm Cementless Hip +5mm 12/14 Taper Head Femoral Latex Free - [id number] Implanted:Qty: 1 on 05/13/2018 by Marlo Andino MD at [facility] Left: Hip [employer] [id number] 11/09/2022 [id number] / / [id number] Insurance [facility] [place] [address] T MEDICARE T MEDICARE Advance Directives For more information, please contact: [phone] * Full Code (Latest Code Status on File) Date Activated Date Inactivated Comments 05/13/2018 3:36 PM 05/14/2018 9:39 PM Care Teams Forestry Technician Relationship Specialty Start Date End Date Josh Albarran MD PCP - General 05/28/16
[2024-08-31 09:51] VITALS: BP 151/88; PULSE 61; RESP 20; TEMP 36.2; O2SAT 100; BMI 22.0
[2024-08-31] MEDS: LACTATED RINGERS 1,000 ML 150 ML IV CONT (09:59)
--- NOTE | 2024-08-31 10:17 | P.PNAN_ITS ---
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 Patient Data Age: 69 Gender: F Height: 1.6 m Weight: 56.4 kg Last Vital Signs Temp 36.2 C L 08/31/24 09:51 Pulse 61 08/31/24 09:51 Resp 20 08/31/24 09:51 BP 151/88 H 08/31/24 09:51 Pulse Ox 100 08/31/24 09:51 O2 Del Method Room Air 08/31/24 09:51 Allergies Allergy/AdvReac Type Severity Reaction Status Date / Time butorphanol AdvReac Intermediate vivd dreams Verified 08/31/24 09:50 lactose AdvReac Unknown Nausea Verified 08/31/24 09:50 prochlorperazine AdvReac Unknown feels Verified 08/31/24 09:50 restless Home Medications ?Medication ?Instructions ?Recorded ?Confirmed ?Type riboflavin (vitamin B2) 100 mg 200 mg PO DAILY 03/16/19 08/31/24 History tablet acidophilus 100 million 1 cap PO DAILY 10/05/19 08/31/24 History cell-pectin, citrus 10 mg capsule (Acidophilus Probiotic) polyethylene glycol 3350 17 17 g PO DAILY 05/02/21 08/31/24 History gram/dose oral powder (Miralax) vitamin B complex 1 tablet PO DAILY 05/02/21 08/31/24 History cholecalciferol (vitamin D3) 25 25 mcg PO DAILY 07/28/22 08/31/24 History mcg (1,000 unit) tablet (Vitamin D3) calcium-magnesium 750 mg-465 mg 1 tablet PO DAILY 01/10/24 08/31/24 History tablet estradiol 0.01% (0.1 mg/gram) See Rx Instructions .Route 01/28/24 08/22/24 Rx vaginal cream .COMPLEX #42.5 grams imipramine HCl 25 mg tablet 25 mg PO QPM #90 tabs 05/17/24 08/31/24 Rx Patient hx anesthesia problems: none Family hx anesthesia problems: none Results Review: All pre-operative results and documents have been reviewed as part of the pre- operative evaluation. [facility] Past Medical History Medical History (Updated 08/30/24 @ 14:08 by Rick Webber DO) Anxiety Bradycardia Need for hepatitis C screening test negative 2022 Trigger thumb, right thumb Gastric polyp Syncopal episodes Mitral valve prolapse Prediabetes Gastroesophageal reflux disease Surgical History Surgical History History of left hip replacement 2018- Dr Andino History of total right hip replacement 2017- Dr Andino History of appendectomy Family History Family History Grandparent Diabetes mellitus Carcinoma of colon Father Hypertension Family history of cardiovascular disease Family history of coronary artery disease Family history of atrial fibrillation Mother Hypertension Cerebrovascular accident Family history of Alzheimer's disease Family history of malignant neoplasm of bone Family history of dementia Family history of malignant neoplasm of breast in first degree relative Sibling Family history of malignant neoplasm Other Family history of allergic disorder Family history of lymphoma Social History Social History Smoking status: Never smoker Alcohol intake: never Substance use: never Substance use type: does not use Lack of Transportation: No Lack of Food: Never True Current Housing: I Have Housing Concerned About Future Housing: No Difficulty Paying Gas/Electric Bills: No Difficulty Paying for Meds: No Currently Unemployed: No Education: Bachelor's Degree Difficulty w/ Childcare or Family Care: No Living arrangements: with family Occupation/Education: occupation Additional occupation/education comments: [employer] Spiritual care concerns: No Anes - Eval Final PreProcedure Day of Procedure 08/31/24 10:17 Patient weight: normal Heart: regular rate and rhythm Lungs: clear to auscultation and normal air movement Airway: Mallampati scale class II Neurological: alert and oriented Last oral intake: >/= 8 hours ASA classification: II Emergent: no Anesthetic plan: proceed Anesthesia type and monitoring: general GIVS and standard monitoring Results Review: All pre-operative results and documents have been reviewed as part of the pre-operative evaluation. Informed Consent: The patient's anesthetic plan and its attendant risks and benefits were discussed with the patient/family/POA. Questions were solicited and answers provided to the satisfaction of the patient/family/POA.
--- NOTE | 2024-08-31 10:43 | PM.IMHP ---
H&P: HPI History of Present Illness Date/Time: 08/31/24 10:43 Chief Complaint: Screening colonoscopy Narrative: This is the patient's first colonoscopy. There are no GI symptoms and there is no family history of colorectal cancer. Review of Systems Review of Systems: All systems reviewed & are unremarkable except as noted in HPI and below PMFSH Past Medical History Medical History (Updated 08/31/24 @ 10:44 by Rolo Tierney MD) Anxiety Bradycardia Need for hepatitis C screening test negative 2022 Trigger thumb, right thumb Gastric polyp Syncopal episodes Mitral valve prolapse Prediabetes Gastroesophageal reflux disease Surgical History Surgical History History of left hip replacement 2018- Dr Andino History of total right hip replacement 2017- Dr Andino History of appendectomy Family History Family History Grandparent Diabetes mellitus Carcinoma of colon Father Hypertension Family history of cardiovascular disease Family history of coronary artery disease Family history of atrial fibrillation Mother Hypertension Cerebrovascular accident Family history of Alzheimer's disease Family history of malignant neoplasm of bone Family history of dementia Family history of malignant neoplasm of breast in first degree relative Sibling Family history of malignant neoplasm Other Family history of allergic disorder Family history of lymphoma Social History Social History Smoking status: Never smoker Alcohol intake: never Substance use: never Substance use type: does not use Lack of Transportation: No Lack of Food: Never True Current Housing: I Have Housing Concerned About Future Housing: No Difficulty Paying Gas/Electric Bills: No Difficulty Paying for Meds: No Currently Unemployed: No Education: Bachelor's Degree Difficulty w/ Childcare or Family Care: No Living arrangements: with family Occupation/Education: occupation Additional occupation/education comments: [employer] Spiritual care concerns: No Meds Home Medications and Allergies Home Medications ?Medication ?Instructions ?Recorded ?Confirmed ?Type riboflavin (vitamin B2) 100 mg 200 mg PO DAILY 03/16/19 08/31/24 History tablet acidophilus 100 million 1 cap PO DAILY 10/05/19 08/31/24 History cell-pectin, citrus 10 mg capsule (Acidophilus Probiotic) polyethylene glycol 3350 17 17 g PO DAILY 05/02/21 08/31/24 History gram/dose oral powder (Miralax) vitamin B complex 1 tablet PO DAILY 05/02/21 08/31/24 History cholecalciferol (vitamin D3) 25 25 mcg PO DAILY 07/28/22 08/31/24 History mcg (1,000 unit) tablet (Vitamin D3) calcium-magnesium 750 mg-465 mg 1 tablet PO DAILY 01/10/24 08/31/24 History tablet estradiol 0.01% (0.1 mg/gram) See Rx Instructions .Route 01/28/24 08/22/24 Rx vaginal cream .COMPLEX #42.5 grams imipramine HCl 25 mg tablet 25 mg PO QPM #90 tabs 05/17/24 08/31/24 Rx Allergies Allergy/AdvReac Type Severity Reaction Status Date / Time butorphanol AdvReac Intermediate vivd dreams Verified 08/31/24 09:50 lactose AdvReac Unknown Nausea Verified 08/31/24 09:50 prochlorperazine AdvReac Unknown feels Verified 08/31/24 09:50 restless Vital Signs Vital Signs - 24 hr 08/31/24 09:51 Temperature 97.2 F L Pulse Rate 61 Respiratory Rate 20 Blood Pressure 151/88 H Pulse Oximetry 100 Oxygen Delivery Room Air Exam Const: General: cooperative and healthy appearing Resp: Effort & Inspection: normal respiratory effort and able to speak in complete sentences Auscultation: clear to auscultation bilaterally Cardio: Rate: regular rate Rhythm: regular rhythm GI: Inspection: normal to inspection GI Palp: No No hepatosplenomegaly present Auscultation: normal bowel sounds Rectal Exam: deferred Skin: General skin exam: normal color Psych: Appearance: grossly normal Mental Status: mental status grossly normal Assessment and Plan Assessment and plan (1) Encounter for screening colonoscopy: Code(s): Z12.11 - Encounter for screening for malignant neoplasm of colon Status: Acute Assessment and Plan: The patient is deemed a good candidate for the procedure. Consent signed. Will proceed.
[2024-08-31 11:06] VITALS: BP 99/63; PULSE 55; RESP 19; O2SAT 100
[2024-08-31 11:16] VITALS: BP 99/64; PULSE 55; RESP 19; O2SAT 100
[2024-08-31 11:26] VITALS: BP 116/70; PULSE 56; RESP 18; O2SAT 100
== END 2024-08-31 11:36 | disposition home or self-care (01) ==
PROVIDERS: PCP Family Medicine; Referring Provider Nurse Practitioner Family; Visit Provider Internal Medicine Gastroenterology
PROC: 0DJD8ZZ Inspection of Lower Intestinal Tract, Via Natural or Artificial Opening Endoscopic (ICD-10-PCS; CPT 45378; principal; 2024-08-31 10:30)
DX: Z12.11 Encounter for screening for malignant neoplasm of colon (principal)
CPT/HCPCS: G0121; J2003; J2704; J7120